=== PATIENT | male | born 1980 | race Caucasian/White ===

== ENCOUNTER 2017-12-27 18:11 | Inpatient (IN) | payer OTHER ==
[2017-12-27 19:07] VITALS: BMI 26.8
[2017-12-27] MEDS ORDERED: MELATONIN 5 MG TABLETS PO PRN (22:00)
--- NOTE | 2017-12-27 22:27 | HP ---
Admission [facility] Chief Complaint: SEEKING REHAB SERVICES FOR K2, THC, JAYCEE, AND REPORTED BENZO USE. History of Present Illness: 37 Y.O. MALE WITH HX/O POLYSUBSTANCE ABUSE HERE FOR INPATIENT REHAB. CLIENT PRESENTS INITIALLY FOR DETOX FOR BENZO USE. TOXICOLOGY NEGATIVE FOR BENZO ( TESTED X 2) CLIENT REPORTS LAST USE 2-3 DAYS AGO OF XANAX. DENIES ETOH ABUSE/ DEPENDENCE. CLIENT IS A POOR HISTORIAN. GIVING CONFLICTING INFORMATION. HE ALSO REPORTS HE IS HOMELESS. REPORTS LONGEST CLEAN TIME 7 YEARS. REPORTS LAST DETOX 5 MONTHS AGO AT [facility]. CLIENT IS PRESENTLY ON METHADONE 100 MG DAILY. LDM 100MG DAILY [place] PENDING VERIFICATION Exam Limitations: No Limitations - Ebola screening Have you traveled outside of the country in the last 21 days: No Have you had contact with anyone from an Ebola affected area: No Have you been sick,other than usual withdrawal symptoms: No Do you have a fever: No - Review of Systems Constitutional: Chills, Loss of Appetite, Malaise, Night Sweats, Unintentional Wgt. Loss EENT: reports: Recent change in vision (NEAR SIDED), Hearing Loss (PARTIALLY DEAF IN RIGHT EAR), Dental Problems (MISSING TEETH AND POOR DENTITION) Respiratory: reports: Productive cough (WHTISH) Cardiac: reports: No Symptoms Reported GI: reports: Poor Appetite, Abdominal cramping : reports: No Symptoms Reported Musculoskeletal: reports: Back Pain, Joint Pain, Neck Pain Integumentary: reports: No Symptoms Reported Neuro: reports: Seizure (R/T BENZO WITHDRAWAL/ AND HEAD TRAUMA), Other Endocrine: reports: Other (HX/O HYPOTHYROIDSM) Hematology: reports: No Symptoms Reported Psychiatric: reports: Anxious, Depressed Other Systems: Reviewed and Negative Patient History - Patient Medical History Hx Anemia: No Hx Asthma: No Hx Chronic Obstructive Pulmonary Disease (COPD): No Hx Cancer: No Hx Cardiac Disorders: No Hx Congestive Heart Failure: No Hx Hypertension: No Hx Hypercholesterolemia: No Hx Pacemaker: No HX Cerebrovascular Accident: No Hx Seizures: Yes (R/T HEAD TRAUMA AND REPORTED BENZO WITHDRAWAL NON COMPLAINT WITH DILANTIN) Hx Dementia: No Hx Diabetes: No Hx Gastrointestinal Disorders: No Hx Liver Disease: No Hx Genitourinary Disorders: No Hx Sexually Transmitted Disorders: No Hx Thyroid Disease: Yes (HYPOTHRYROIDISM ON SYNTHROID) Hx Human Immunodeficiency Virus (HIV): No Hx Hepatitis C: Yes (TX'ED) Hx Depression: Yes Hx Suicide Attempt: No Hx Bipolar Disorder: Yes Hx Schizophrenia: Yes Other Medical History: ADHD - Patient Surgical History Past Surgical History: Yes Other Surgical History: 2008 L KIDNEY STONE REMOVAL Anesthesia Reaction: No - PPD History Previous Implant?: Yes Documented Results: Negative w/o proof Implanted On Prior [facility] Admission?: No PPD to be Administered?: Yes - Smoking Cessation Smoking history: Current every day smoker Have you smoked in the past 12 months: Yes Aproximately how many cigarettes per day: 20 Cigars Per Day: 0 Hx Chewing Tobacco Use: No Initiated information on smoking cessation: Yes 'Breaking Loose' booklet given: 12/27/17 - Substance & Tx. History Hx Alcohol Use: No Hx Substance Use: Yes Substance Use Type: Cocaine, Heroin, Marijuana (K2/ THX) Hx Substance Use Treatment: Yes ([facility]) - Substances Abused THC Route: Smoking Frequency: Daily Amount used: EIGHTH Age of first use: 12 Date of Last Use: 12/27/17 K2 Route: Smoking Frequency: Daily Amount used: 1 GM Age of first use: 33 Date of Last Use: 12/27/17 HEROIN Route: Inhalation Frequency: 3-6 times per week Amount used: 1GM Age of first use: 19 Date of Last Use: 12/27/17 COCAINE Route: Smoking Frequency: 1-3 times last 30 days Amount used: 1 LINE Age of first use: 19 Date of Last Use: 12/26/17 Family Disease History - Family Disease History Family History: Denies Admission Physical Exam [facility] - Vital Signs Vital Signs: Vital Signs - 24 hr 12/27/17 19:03 Temperature 99.4 F Pulse Rate 60 Respiratory 18 Rate Blood Pressure 121/79 - Physical General Appearance: Yes: Disheveled, Irritable, Anxious HEENTM: Yes: EOMI, Normocephalic, Normal Voice, SAL, Pharynx Normal, Other ( MISSING TEETH) Respiratory: Yes: Chest Non-Tender, Lungs Clear, Normal Breath Sounds, No Respiratory Distress, No Accessory Muscle Use Neck: Yes: No masses,lesions,Nodules, Supple, Trachea in good position Breast: Yes: Breast Exam Deferred Cardiology: Yes: Regular Rhythm, Regular Rate, S1, S2 Abdominal: Yes: Normal Bowel Sounds, Non Tender, Flat, Soft Genitourinary: Yes: Within Normal Limits Back: Yes: Normal Inspection Musculoskeletal: Yes: full range of Motion, Gait Steady Extremities: Yes: Normal Capillary Refill, Normal Range of Motion, Non-Tender 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 NML intact, Fully Oriented, Motor Strength 5/5, Depressed Affect Integumentary: Yes: Dry, Warm, Track Hernandez (TO BILAT AC) Lymphatic: Yes: Within Normal Limits - Diagnostic (1) Cannabis dependence, uncomplicated Current Visit: Yes Status: Chronic (2) Methadone maintenance therapy patient Current Visit: Yes Status: Chronic (3) Cocaine abuse, uncomplicated Current Visit: Yes Status: Chronic (4) Nicotine dependence Current Visit: Yes Status: Chronic Qualifiers: Nicotine product type: cigarettes Substance use status: uncomplicated Qualified Code(s): F17.210 - Nicotine dependence, cigarettes, uncomplicated (5) Seizure disorder Current Visit: Yes Status: Chronic (6) Non compliance w medication regimen Current Visit: Yes Status: Chronic (7) Hypothyroidism Current Visit: Yes Status: Chronic (8) Hearing loss in left ear Current Visit: Yes Status: Chronic (9) Substance induced mood disorder Current Visit: Yes Status: Suspected (10) Depressed affect Current Visit: Yes Status: Suspected (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 Current Visit: Yes Status: Chronic Cleared for Admission [facility] - Detox or Rehab Detox Regimen/Protocol: Not Applicable Claeared for Rehab Admission: Yes [facility] Breath Alcohol Content Breath Alcohol Content: 0 Urine Drug Screen - Results Drug Screen Negative: No Urine Drug Screen Results: THC-Marijuana, JAYCEE-Cocaine, OPI-Opiates, MTD- Methadone Inpatient Rehab Admission - Initial Determination Are CD services needed?: Yes Free of communicable disease: Yes Not in need of hospitalization: Yes - Rehab Admission Criteria Previous failed treatment: Yes Poor recovery environment: Yes Comorbidities: Yes Lacks judgement: Yes Patient is meeting Inpatient Rehab admission criteria:: Yes
[2017-12-27] MEDS ORDERED: guaiFENesin/D-METHORPHAN HB 10 ML UNIT-DOSE CUPS PO PRN (22:56)
[2017-12-27] MEDS ORDERED: MAG HYDROX/AL HYDROX/SIMETH 30 ML UNIT-DOSE CUP PO PRN (22:56)
[2017-12-27] MEDS ORDERED: IBUPROFEN 400 MG TABLET (FP) PO PRN (22:56)
[2017-12-27] MEDS ORDERED: P-EPHED 60MG/TRIPROLIDI 2.5MG TABLET PO PRN (22:56)
[2017-12-27] MEDS ORDERED: ACETAMINOPHEN 325 MG TABLET (FP) PO PRN (22:56)
[2017-12-27] MEDS ORDERED: MAGNESIUM HYDROX 2400MG/30ML ORAL SUSPENSION 30 ML CUP PO PRN (22:56)
[2017-12-27] MEDS ORDERED: LOPERAMIDE HCL 2 MG CAPSULE PO PRN (22:56)
[2017-12-27] MEDS ORDERED: MAGNESIUM CITRATE 300 ML BOTTLE PO PRN (22:56)
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
[2017-12-28] MEDS ORDERED: LEVOTHYROXINE NA 125 MCG TABLET (FP) PO SCH (07:00)
[2017-12-28] MEDS ORDERED: LEVOTHYROXINE NA 25 MCG TABLET (FP) ONE (09:04)
[2017-12-28] MEDS ORDERED: LEVOTHYROXINE NA 100 MCG TABLET (FP) ONE (09:04)
[2017-12-28] MEDS ORDERED: METHADONE HCL 10 MG TABLET PO SCH (09:15)
[2017-12-28] MEDS ORDERED: METHADONE HCL 10 MG TABLET ONE (09:24)
[2017-12-28] MEDS ORDERED: METHADONE HCL 40 MG DISPERSABLE TABLET ONE (09:25)
[2017-12-28] MEDS: LEVOTHYROXINE 25 MCG, LEVOTHYROXINE 100 MCG PO SCH (09:27)
[2017-12-28] MEDS: PRENATAL VITAMINS W/ FOLIC ACID TABLET (FP) PO SCH (09:27)
[2017-12-28] MEDS: METHADONE 80 MG, METHADONE 20 MG PO SCH (09:28)
[2017-12-28] MEDS: NICOTINE 21 MG/24 HOURS TOPICAL PATCH TD SCH (09:30)
[2017-12-28 14:29] LABS: HEMATOCRIT 43.8 % (35.4-49); HEMOGLOBIN 14.5 GM/dL (11.7-16.9); MCH 30.5 pg (25.7-33.7); MEAN CELL VOLUME 92.3 fl (80-96); MEAN PLT VOLUME 8.9 fl (7.5-11.1); PLATELET COUNT 334 K/MM3 (134-434); RBC 4.75 M/mm3 (4.00-5.60); RDW 14.3 % (11.9-15.9)
[2017-12-28 14:44] LABS: ALBUMIN 4.1 g/dl (3.4-5.0); ANION GAP 10 (8-16); BILIRUBIN,TOTAL 0.6 mg/dL (0.2-1.0); BLOOD UREA NITROGEN 6 mg/dL (7-18); CALCIUM 9.3 mg/dL (8.5-10.1); CHLORIDE 105 mmol/L (98-107); CO2 25 mmol/L (21-32); GLUCOSE,RANDOM 141 mg/dL (74-106); POTASSIUM 4.1 mmol/L (3.5-5.1); SGOT/AST 36 U/L (15-37); SGPT/ALT 32 U/L (12-78); SODIUM 140 mmol/L (136-145); TOT PROT 7.6 g/dl (6.4-8.2)
[2017-12-28 14:45] LABS: ALK PHOS 49 U/L (45-117)
[2017-12-28] MEDS: THIAMINE HCL 100 MG TABLET (FP) PO SCH (21:34)
[2017-12-29] MEDS ORDERED: LEVOTHYROXINE NA 25 MCG TABLET (FP) ONE (04:05)
[2017-12-29] MEDS ORDERED: LEVOTHYROXINE NA 100 MCG TABLET (FP) ONE (04:05)
[2017-12-29] MEDS ORDERED: METHADONE HCL 10 MG TABLET ONE (04:05)
[2017-12-29] MEDS ORDERED: METHADONE HCL 40 MG DISPERSABLE TABLET ONE (04:05)
[2017-12-29] MEDS: LEVOTHYROXINE 25 MCG, LEVOTHYROXINE 100 MCG PO SCH (06:50)
[2017-12-29] MEDS: METHADONE 80 MG, METHADONE 20 MG PO SCH (06:50)
[2017-12-29] MEDS: PRENATAL VITAMINS W/ FOLIC ACID TABLET (FP) PO SCH (09:31)
[2017-12-29] MEDS: NICOTINE 21 MG/24 HOURS TOPICAL PATCH TD SCH (09:32)
--- NOTE | 2017-12-29 12:12 | EKG ---
Test Reason : Blood Pressure : / mmHG Vent. Rate : 053 BPM Atrial Rate : 053 BPM P-R Int : 140 ms QRS Dur : 088 ms QT Int : 488 ms P-R-T Axes : 054 021 039 degrees QTc Int : 457 ms SINUS BRADYCARDIA WITH SINUS ARRHYTHMIA OTHERWISE NORMAL ECG NO PREVIOUS ECGS AVAILABLE Confirmed by THIERRY SOLOMON, YOANA ([id number]) on 12/29/2017 12:11:56 PM Referred By: Cricket Byers Confirmed By:YOANA GUADARRAMA MD
[2017-12-29] MEDS: THIAMINE HCL 100 MG TABLET (FP) PO SCH (21:20)
[2017-12-30] MEDS ORDERED: METHADONE HCL 40 MG DISPERSABLE TABLET ONE (04:11)
[2017-12-30] MEDS ORDERED: LEVOTHYROXINE NA 25 MCG TABLET (FP) ONE (04:11)
[2017-12-30] MEDS ORDERED: METHADONE HCL 10 MG TABLET ONE (04:11)
[2017-12-30] MEDS ORDERED: LEVOTHYROXINE NA 100 MCG TABLET (FP) ONE (04:12)
[2017-12-30] MEDS: METHADONE 80 MG, METHADONE 20 MG PO SCH (06:45)
[2017-12-30] MEDS: LEVOTHYROXINE 25 MCG, LEVOTHYROXINE 100 MCG PO SCH (06:45)
[2017-12-30] MEDS: PRENATAL VITAMINS W/ FOLIC ACID TABLET (FP) PO SCH (09:50)
[2017-12-30] MEDS: NICOTINE 21 MG/24 HOURS TOPICAL PATCH TD SCH (09:50)
--- NOTE | 2017-12-30 14:13 | PN ---
S Progress Note Note: PATIENT PRESENTS WITH REDNESS AND ITCHING TO BOTH EYES. STATES HAVING YELLOW, GREEN DISCHARGE IN THE MORNING FROM LEFT EYE. PE: +PERRLA, EOMS INTACT BL, + REDNESS TO SCLERA AND CONJUNCTIVAE. NO VISIBLE EXUDATE AT TIME OF EXAM. WILL ORDER TOBRADEX TO BOTH EYES ONE DROP TID FOR 7 DAYS, STRICT HANDWASHING AND CONTINUE TO MONITOR CLINICALLY.
[2017-12-30 14:55] LABS: URINE APPEARANCE CLOUDY; URINE BILIRUBIN NEGATIVE (<2.0 mg/dL); URINE COLOR AMBER; URINE GLUCOSE (UA) NEGATIVE (NEGATIVE); URINE KETONE NEGATIVE (NEGATIVE); URINE LEUK ESTERASE 3+ (NEGATIVE); URINE NITRITE NEGATIVE (NEGATIVE); URINE PROTEIN 2+ (NEGATIVE); URINE UROBILINOGEN NEGATIVE mg/dL (0.2-1.0)
--- NOTE | 2017-12-30 14:58 | PN ---
Psychiatric Progress Note Vital Signs: Vital Signs Period Temp Pulse Resp BP Sys/Matos Pulse Ox Last 24 Hr 97.9 F 58 18 108/70 Date of Session: 12/30/17 Chief Complaint:: Insomnia HPI: Patient addressing Cocaine, Cannabis Dependence comorbid with Opioid Dependence on Agonist Therapy, ADHD, Bipolar Disorder, PTSD, Substance-Induced Mood Disorder and Substance-Induced Sleep Disorder ROS: Hypothyroisdism, Seizure Disorder, Hep C Current Medications: Active Medications Generic Name Dose Route Start Last Admin Trade Name Freq PRN Reason Stop Dose Admin Acetaminophen 650 mg 12/27/17 22:56 Tylenol - PO Q4H PRN FEVER Al Hydroxide/Mg Hydroxide 30 ml 12/27/17 22:56 Mylanta Oral Suspension - PO Q6H PRN DYSPEPSIA Eucalyptus/Menthol/Phenol/Sorbitol 1 each 12/27/17 22:56 Cepastat Lozenge - MM Q4H PRN SORE THROAT Guaifenesin 10 ml 12/27/17 22:56 Robitussin Dm - PO Q6H PRN COUGH Hydroxyzine Pamoate 50 mg 12/27/17 22:56 Vistaril - PO Q4H PRN AGITATION Ibuprofen 400 mg 12/27/17 22:56 Motrin - PO Q6H PRN Pain level 4-6 Levothyroxine Sodium 25 mcg/ 125 mcg 12/28/17 09:00 12/30/17 06:45 Levothyroxine Sodium 100 mcg PO 125 mcg DAILY@0700 SHERI Administration Loperamide HCl 4 mg 12/27/17 22:56 Imodium - PO Q6H PRN DIARRHEA Magnesium Citrate 300 ml 12/27/17 22:56 Citroma - PO Q48H PRN CONSTIPATION Magnesium Hydroxide 30 ml 12/27/17 22:56 Milk Of Magnesia - PO DAILY PRN CONSTIPATION Melatonin 5 mg 12/27/17 22:00 Melatonin PO HS PRN INSOMNIA Methadone HCl 80 mg/ Methadone 100 mg 12/28/17 09:20 12/30/17 06:45 HCl 20 mg PO 01/04/18 09:19 100 mg DAILY@0600 SHERI Administration Nicotine 21 mg 12/28/17 10:00 12/30/17 09:50 Nicoderm Patch - TD 21 mg DAILY SHERI Administration Nicotine Polacrilex 2 mg 12/27/17 22:56 Nicorette Gum - BUC Q2H PRN NICOTINE REPLACEMENT RX Multivit/Folic Acid/Iron 1 tab 12/28/17 10:00 12/30/17 09:50 Vitamins ([facility]) - PO 1 tab DAILY SHERI Administration Pseudoephedrine/Triprolidine 1 combo 12/27/17 22:56 Actifed - PO TID PRN NASAL CONGESTION Suvorexant 10 mg 12/30/17 22:00 Belsomra PO HS PRN INSOMNIA Thiamine HCl 100 mg 12/28/17 22:00 12/29/17 21:20 Vitamin B1 - PO 100 mg HS SHERI Administration Tobramycin/Dexamethasone 1 drop 12/30/17 18:00 Tobradex Ophthalmic Suspension - OU 01/06/18 17:59 Q6HPO SHERI Current Side Effect: No Lab tests ordered: Yes Lab tests reviewed: Yes Provider note:: Patient reports experiencing difficulty to sleep despite taking Melatonin 5 mg at bedtime. Requests something stronger other than Trazadone. Discussed with patient sleep properties and adverse-effects of Belsomra and he agreeed to try it Total face to face time:: 15 Mental Status Exam - Mental Status Exam Alert and Oriented to: Time, Place, Person Cognitive Function: Fair Patient Appearance: Well Groomed Mood: Anxious, Hopeful Affect: Appropriate Patient Behavior: Cooperative Speech Pattern: Clear Voice Loudness: Normal Thought Process: Intact, Goal Oriented Thought Disorder: Not Present Hallucinations: Denies Suicidal Ideation: Denies Homicidal Ideation: Denies Insight/Judgement: Fair Sleep: Poorly Appetite: Good Muscle strength/Tone: Normal Gait/Station: Normal Psychiatric Treatment Plan - Problem List (1) Cocaine dependence Current Visit: Yes (2) Cannabis dependence Current Visit: Yes (3) Opioid dependence on agonist therapy Current Visit: Yes (4) Nicotine dependence Current Visit: Yes Qualifiers: Nicotine product type: cigarettes Substance use status: uncomplicated Qualified Code(s): F17.210 - Nicotine dependence, cigarettes, uncomplicated (5) ADHD (attention deficit hyperactivity disorder) Current Visit: Yes (6) Bipolar disorder Current Visit: Yes (7) PTSD (post-traumatic stress disorder) Current Visit: Yes (8) Substance induced mood disorder Current Visit: Yes (9) Substance-induced sleep disorder Current Visit: Yes (10) Hypothyroidism Current Visit: Yes (11) Seizure disorder Current Visit: Yes (12) Hepatitis C Current Visit: Yes Initial treatment plan: 1) Start Belsomra 10 mg po HS prn for insomnia. 2) Monitor progress
[2017-12-30 15:24] LABS: CALCIUM OXALATE CRYSTALS MANY /hpf (NONE SEEN); URINE MUCUS FEW; YEAST MODERATE
[2017-12-30] MEDS: TOBRA 0.3%/DEXAMETH 0.1% OPHTHALMIC SUSP 2.5 ML BTL OU SCH (18:24)
[2017-12-30] MEDS: hydrOXYzine PAMOATE 50 MG CAPSULE (FP) PO PRN (18:25)
[2017-12-30] MEDS: THIAMINE HCL 100 MG TABLET (FP) PO SCH (21:37)
[2017-12-30] MEDS ORDERED: SUVOREXANT 10 MG TABLET PO PRN (22:00)
[2017-12-31] MEDS: TOBRA 0.3%/DEXAMETH 0.1% OPHTHALMIC SUSP 2.5 ML BTL OU SCH ×4 (00:30→17:54)
[2017-12-31] MEDS ORDERED: METHADONE HCL 40 MG DISPERSABLE TABLET ONE (03:15)
[2017-12-31] MEDS ORDERED: METHADONE HCL 10 MG TABLET ONE (03:15)
[2017-12-31] MEDS ORDERED: LEVOTHYROXINE NA 25 MCG TABLET (FP) ONE (03:15)
[2017-12-31] MEDS ORDERED: LEVOTHYROXINE NA 100 MCG TABLET (FP) ONE (03:16)
[2017-12-31] MEDS: LEVOTHYROXINE 25 MCG, LEVOTHYROXINE 100 MCG PO SCH (07:11)
[2017-12-31] MEDS: METHADONE 80 MG, METHADONE 20 MG PO SCH (07:11)
[2017-12-31] MEDS: hydrOXYzine PAMOATE 50 MG CAPSULE (FP) PO PRN ×2 (09:56→17:54)
[2017-12-31] MEDS: PRENATAL VITAMINS W/ FOLIC ACID TABLET (FP) PO SCH (09:56)
[2017-12-31] MEDS: NICOTINE 21 MG/24 HOURS TOPICAL PATCH TD SCH (09:56)
[2017-12-31] MEDS: MENTHOL/PHENOL 1 EACH UD MM PRN ×2 (10:01→17:54)
[2017-12-31] MEDS ORDERED: PT OWN MED DRAWER 7, Y5N ONE ×2 (17:53→17:57)
[2017-12-31] MEDS: THIAMINE HCL 100 MG TABLET (FP) PO SCH (22:14)
[2018-01-01] MEDS ORDERED: PT OWN MED DRAWER 7, Y5N ONE ×3 (00:01→18:04)
[2018-01-01] MEDS ORDERED: METHADONE HCL 10 MG TABLET ONE (02:44)
[2018-01-01] MEDS ORDERED: LEVOTHYROXINE NA 25 MCG TABLET (FP) ONE (02:44)
[2018-01-01] MEDS ORDERED: METHADONE HCL 40 MG DISPERSABLE TABLET ONE (02:44)
[2018-01-01] MEDS ORDERED: LEVOTHYROXINE NA 100 MCG TABLET (FP) ONE (02:45)
[2018-01-01] MEDS: METHADONE 80 MG, METHADONE 20 MG PO SCH (06:25)
[2018-01-01] MEDS: TOBRA 0.3%/DEXAMETH 0.1% OPHTHALMIC SUSP 2.5 ML BTL OU SCH ×5 (06:26→23:42)
[2018-01-01] MEDS: LEVOTHYROXINE 25 MCG, LEVOTHYROXINE 100 MCG PO SCH (06:26)
[2018-01-01] MEDS: NICOTINE 21 MG/24 HOURS TOPICAL PATCH TD SCH (09:09)
[2018-01-01] MEDS: hydrOXYzine PAMOATE 50 MG CAPSULE (FP) PO PRN ×4 (09:09→21:33)
[2018-01-01] MEDS: PRENATAL VITAMINS W/ FOLIC ACID TABLET (FP) PO SCH (09:09)
[2018-01-01] MEDS: MENTHOL/PHENOL 1 EACH UD MM PRN (09:10)
[2018-01-01] MEDS: NICOTINE POLACRILEX 2 MG GUM BUC PRN ×2 (13:16→21:33)
[2018-01-01] MEDS: THIAMINE HCL 100 MG TABLET (FP) PO SCH (21:32)
[2018-01-02] MEDS ORDERED: METHADONE HCL 10 MG TABLET ONE (04:06)
[2018-01-02] MEDS ORDERED: METHADONE HCL 40 MG DISPERSABLE TABLET ONE (04:06)
[2018-01-02] MEDS: METHADONE 80 MG, METHADONE 20 MG PO SCH (06:54)
[2018-01-02] MEDS: TOBRA 0.3%/DEXAMETH 0.1% OPHTHALMIC SUSP 2.5 ML BTL OU SCH ×3 (06:55→17:58)
[2018-01-02] MEDS: LEVOTHYROXINE 25 MCG, LEVOTHYROXINE 100 MCG PO SCH (06:55)
[2018-01-02] MEDS ORDERED: PT OWN MED DRAWER 7, Y5N ONE (09:04)
[2018-01-02] MEDS: PRENATAL VITAMINS W/ FOLIC ACID TABLET (FP) PO SCH (09:58)
[2018-01-02] MEDS: NICOTINE 21 MG/24 HOURS TOPICAL PATCH TD SCH (09:58)
[2018-01-02] MEDS: hydrOXYzine PAMOATE 50 MG CAPSULE (FP) PO PRN ×2 (10:00→21:31)
[2018-01-02] MEDS: NICOTINE POLACRILEX 2 MG GUM BUC PRN ×4 (10:02→21:32)
[2018-01-02] MEDS: MENTHOL/PHENOL 1 EACH UD MM PRN (10:02)
[2018-01-02] MEDS: THIAMINE HCL 100 MG TABLET (FP) PO SCH (21:31)
[2018-01-03] MEDS: TOBRA 0.3%/DEXAMETH 0.1% OPHTHALMIC SUSP 2.5 ML BTL OU SCH ×4 (00:05→17:27)
[2018-01-03] MEDS ORDERED: METHADONE HCL 10 MG TABLET ONE (04:10)
[2018-01-03] MEDS ORDERED: LEVOTHYROXINE NA 25 MCG TABLET (FP) ONE (04:10)
[2018-01-03] MEDS ORDERED: METHADONE HCL 40 MG DISPERSABLE TABLET ONE (04:10)
[2018-01-03] MEDS ORDERED: LEVOTHYROXINE NA 100 MCG TABLET (FP) ONE (04:11)
[2018-01-03] MEDS: METHADONE 80 MG, METHADONE 20 MG PO SCH (06:47)
[2018-01-03] MEDS: LEVOTHYROXINE 25 MCG, LEVOTHYROXINE 100 MCG PO SCH (06:48)
[2018-01-03] MEDS: NICOTINE 21 MG/24 HOURS TOPICAL PATCH TD SCH (09:38)
[2018-01-03] MEDS: PRENATAL VITAMINS W/ FOLIC ACID TABLET (FP) PO SCH (09:38)
[2018-01-03] MEDS: hydrOXYzine PAMOATE 50 MG CAPSULE (FP) PO PRN ×2 (09:38→21:37)
[2018-01-03] MEDS: NICOTINE POLACRILEX 2 MG GUM BUC PRN ×4 (09:41→20:50)
[2018-01-03] MEDS: MENTHOL/PHENOL 1 EACH UD MM PRN (09:41)
--- NOTE | 2018-01-03 13:47 | PN ---
[facility] Progress Note Note: c/o of back pain Vital Signs Temperature 98.1 F 01/03/18 07:00 Pulse Rate 65 01/03/18 07:00 Respiratory Rate 18 01/03/18 07:00 Blood Pressure 132/75 01/03/18 07:00 O2 Sat by Pulse Oximetry (%) Laboratory Last Values WBC 9.0 K/mm3 (4.0-10.0) 12/28/17 09:00 RBC 4.75 M/mm3 (4.00-5.60) 12/28/17 09:00 Hgb 14.5 GM/dL (11.7-16.9) 12/28/17 09:00 Hct 43.8 % (35.4-49) 12/28/17 09:00 MCV 92.3 fl (80-96) 12/28/17 09:00 MCH 30.5 pg (25.7-33.7) 12/28/17 09:00 MCHC 33.0 g/dl (32.0-35.9) 12/28/17 09:00 RDW 14.3 % (11.9-15.9) 12/28/17 09:00 Plt Count 334 K/MM3 (134-434) 12/28/17 09:00 MPV 8.9 fl (7.5-11.1) 12/28/17 09:00 Sodium 140 mmol/L (136-145) 12/28/17 09:00 Potassium 4.1 mmol/L (3.5-5.1) 12/28/17 09:00 Chloride 105 mmol/L (98-107) 12/28/17 09:00 Carbon Dioxide 25 mmol/L (21-32) 12/28/17 09:00 Anion Gap 10 (8-16) 12/28/17 09:00 BUN 6 mg/dL (7-18) L 12/28/17 09:00 Creatinine 1.0 mg/dL (0.7-1.3) 12/28/17 09:00 Creat Clearance w eGFR > 60 (>60) 12/28/17 09:00 Random Glucose 141 mg/dL (74-106) H 12/28/17 09:00 Calcium 9.3 mg/dL (8.5-10.1) 12/28/17 09:00 Total Bilirubin 0.6 mg/dL (0.2-1.0) 12/28/17 09:00 AST 36 U/L (15-37) 12/28/17 09:00 ALT 32 U/L (12-78) 12/28/17 09:00 Alkaline Phosphatase 49 U/L (45-117) 12/28/17 09:00 Total Protein 7.6 g/dl (6.4-8.2) 12/28/17 09:00 Albumin 4.1 g/dl (3.4-5.0) 12/28/17 09:00 Urine Color Marcelle 12/30/17 10:15 Urine Appearance Cloudy 12/30/17 10:15 Urine pH 5.0 (5.0-8.0) 12/30/17 10:15 Ur Specific [place] 1.021 (1.001-1.035) 12/30/17 10:15 Urine Protein 2+ (NEGATIVE) H 12/30/17 10:15 Urine Glucose (UA) Negative (NEGATIVE) 12/30/17 10:15 Urine Ketones Negative (NEGATIVE) 12/30/17 10:15 Urine Blood Negative (NEGATIVE) 12/30/17 10:15 Urine Nitrite Negative (NEGATIVE) 12/30/17 10:15 Urine Bilirubin Negative (<2.0 mg/dL) 12/30/17 10:15 Urine Urobilinogen Negative mg/dL (0.2-1.0) 12/30/17 10:15 Ur Leukocyte Esterase 3+ (NEGATIVE) H 12/30/17 10:15 Urine WBC (Auto) 994 /hpf (3-5) 12/30/17 10:15 Urine RBC (Auto) 34 /hpf (0-3) 12/30/17 10:15 Calcium Oxalate Crystal Many /hpf (NONE SEEN) 12/30/17 10:15 Urine Mucus Few 12/30/17 10:15 Urine Yeast Moderate 12/30/17 10:15 RPR Titer Nonreactive (NONREACTIVE) 12/28/17 09:00 flexeril PRN increase fluids ibuprofen PRN ambulate continue to monitor
[2018-01-03] MEDS: CYCLOBENZAPRINE HCL 5 MG TABLET PO SCH ×2 (14:21→21:37)
[2018-01-03] MEDS: LIDOCAINE 5% TOPICAL PATCH TP SCH (14:21)
[2018-01-03] MEDS ORDERED: PT OWN MED DRAWER 7, Y5N ONE (16:44)
[2018-01-03] MEDS: THIAMINE HCL 100 MG TABLET (FP) PO SCH (21:37)
[2018-01-03] MEDS: LIDOCAINE PATCH REMOVAL MC SCH (21:45)
[2018-01-04] MEDS: TOBRA 0.3%/DEXAMETH 0.1% OPHTHALMIC SUSP 2.5 ML BTL OU SCH ×5 (01:07→23:39)
[2018-01-04] MEDS ORDERED: LEVOTHYROXINE NA 100 MCG TABLET (FP) ONE (02:42)
[2018-01-04] MEDS ORDERED: LEVOTHYROXINE NA 25 MCG TABLET (FP) ONE (02:42)
[2018-01-04] MEDS ORDERED: METHADONE HCL 10 MG TABLET ONE (05:49)
[2018-01-04] MEDS ORDERED: METHADONE HCL 40 MG DISPERSABLE TABLET ONE (05:49)
[2018-01-04] MEDS ORDERED: METHADONE HCL 10 MG TABLET PO SCH (06:00)
[2018-01-04] MEDS: LEVOTHYROXINE 25 MCG, LEVOTHYROXINE 100 MCG PO SCH (06:49)
[2018-01-04] MEDS: CYCLOBENZAPRINE HCL 5 MG TABLET PO SCH ×3 (06:49→21:21)
[2018-01-04] MEDS: METHADONE 80 MG, METHADONE 20 MG PO SCH (06:49)
[2018-01-04] MEDS: LIDOCAINE 5% TOPICAL PATCH TP SCH (09:36)
[2018-01-04] MEDS: NICOTINE 21 MG/24 HOURS TOPICAL PATCH TD SCH (09:36)
[2018-01-04] MEDS: PRENATAL VITAMINS W/ FOLIC ACID TABLET (FP) PO SCH (09:36)
[2018-01-04] MEDS: NICOTINE POLACRILEX 2 MG GUM BUC PRN ×4 (09:37→21:22)
[2018-01-04] MEDS: hydrOXYzine PAMOATE 50 MG CAPSULE (FP) PO PRN ×2 (09:38→21:21)
[2018-01-04] MEDS: THIAMINE HCL 100 MG TABLET (FP) PO SCH (21:21)
[2018-01-04] MEDS: LIDOCAINE PATCH REMOVAL MC SCH (22:00)
[2018-01-05] MEDS ORDERED: METHADONE HCL 10 MG TABLET ONE (04:20)
[2018-01-05] MEDS ORDERED: LEVOTHYROXINE NA 25 MCG TABLET (FP) ONE (04:21)
[2018-01-05] MEDS ORDERED: METHADONE HCL 40 MG DISPERSABLE TABLET ONE (04:21)
[2018-01-05] MEDS ORDERED: LEVOTHYROXINE NA 100 MCG TABLET (FP) ONE (04:22)
[2018-01-05] MEDS: METHADONE 80 MG, METHADONE 20 MG PO SCH (06:22)
[2018-01-05] MEDS: CYCLOBENZAPRINE HCL 5 MG TABLET PO SCH ×3 (06:22→21:29)
[2018-01-05] MEDS: LEVOTHYROXINE 25 MCG, LEVOTHYROXINE 100 MCG PO SCH (06:22)
[2018-01-05] MEDS: TOBRA 0.3%/DEXAMETH 0.1% OPHTHALMIC SUSP 2.5 ML BTL OU SCH ×3 (06:25→17:55)
[2018-01-05] MEDS: LIDOCAINE 5% TOPICAL PATCH TP SCH (09:50)
[2018-01-05] MEDS: NICOTINE 21 MG/24 HOURS TOPICAL PATCH TD SCH (09:50)
[2018-01-05] MEDS: PRENATAL VITAMINS W/ FOLIC ACID TABLET (FP) PO SCH (09:50)
[2018-01-05] MEDS: NICOTINE POLACRILEX 2 MG GUM BUC PRN ×3 (09:51→17:56)
[2018-01-05] MEDS: hydrOXYzine PAMOATE 50 MG CAPSULE (FP) PO PRN ×3 (09:51→21:29)
[2018-01-05] MEDS: LIDOCAINE PATCH REMOVAL MC SCH (21:29)
[2018-01-05] MEDS: THIAMINE HCL 100 MG TABLET (FP) PO SCH (21:29)
[2018-01-06] MEDS ORDERED: METHADONE HCL 10 MG TABLET ONE (04:47)
[2018-01-06] MEDS ORDERED: LEVOTHYROXINE NA 25 MCG TABLET (FP) ONE (04:47)
[2018-01-06] MEDS ORDERED: METHADONE HCL 40 MG DISPERSABLE TABLET ONE (04:47)
[2018-01-06] MEDS ORDERED: LEVOTHYROXINE NA 100 MCG TABLET (FP) ONE (04:48)
[2018-01-06] MEDS: LEVOTHYROXINE 25 MCG, LEVOTHYROXINE 100 MCG PO SCH (06:29)
[2018-01-06] MEDS: CYCLOBENZAPRINE HCL 5 MG TABLET PO SCH ×3 (06:29→21:28)
[2018-01-06] MEDS: METHADONE 80 MG, METHADONE 20 MG PO SCH (06:29)
[2018-01-06] MEDS: TOBRA 0.3%/DEXAMETH 0.1% OPHTHALMIC SUSP 2.5 ML BTL OU SCH ×3 (06:30→12:17)
[2018-01-06] MEDS: NICOTINE POLACRILEX 2 MG GUM BUC PRN ×5 (09:04→22:06)
[2018-01-06] MEDS: PRENATAL VITAMINS W/ FOLIC ACID TABLET (FP) PO SCH (09:47)
[2018-01-06] MEDS: NICOTINE 21 MG/24 HOURS TOPICAL PATCH TD SCH (09:47)
[2018-01-06] MEDS: LIDOCAINE 5% TOPICAL PATCH TP SCH (09:47)
[2018-01-06] MEDS: hydrOXYzine PAMOATE 50 MG CAPSULE (FP) PO PRN (09:48)
[2018-01-06] MEDS: THIAMINE HCL 100 MG TABLET (FP) PO SCH (21:28)
[2018-01-06] MEDS: LIDOCAINE PATCH REMOVAL MC SCH (22:19)
[2018-01-07] MEDS ORDERED: LEVOTHYROXINE NA 25 MCG TABLET (FP) ONE (05:47)
[2018-01-07] MEDS ORDERED: METHADONE HCL 40 MG DISPERSABLE TABLET ONE (05:47)
[2018-01-07] MEDS ORDERED: METHADONE HCL 10 MG TABLET ONE (05:47)
[2018-01-07] MEDS ORDERED: LEVOTHYROXINE NA 100 MCG TABLET (FP) ONE (05:48)
[2018-01-07] MEDS: LEVOTHYROXINE 25 MCG, LEVOTHYROXINE 100 MCG PO SCH (06:36)
[2018-01-07] MEDS: CYCLOBENZAPRINE HCL 5 MG TABLET PO SCH ×3 (06:36→21:37)
[2018-01-07] MEDS: METHADONE 80 MG, METHADONE 20 MG PO SCH (06:36)
[2018-01-07] MEDS: NICOTINE POLACRILEX 2 MG GUM BUC PRN ×4 (08:53→21:38)
[2018-01-07] MEDS: PRENATAL VITAMINS W/ FOLIC ACID TABLET (FP) PO SCH (09:48)
[2018-01-07] MEDS: LIDOCAINE 5% TOPICAL PATCH TP SCH (09:48)
[2018-01-07] MEDS: NICOTINE 21 MG/24 HOURS TOPICAL PATCH TD SCH (09:48)
[2018-01-07] MEDS: LIDOCAINE PATCH REMOVAL MC SCH (21:38)
[2018-01-07] MEDS: THIAMINE HCL 100 MG TABLET (FP) PO SCH (21:39)
[2018-01-08] MEDS ORDERED: LEVOTHYROXINE NA 25 MCG TABLET (FP) ONE (04:00)
[2018-01-08] MEDS ORDERED: METHADONE HCL 40 MG DISPERSABLE TABLET ONE (04:00)
[2018-01-08] MEDS ORDERED: METHADONE HCL 10 MG TABLET ONE (04:00)
[2018-01-08] MEDS ORDERED: LEVOTHYROXINE NA 100 MCG TABLET (FP) ONE (04:01)
[2018-01-08] MEDS: LEVOTHYROXINE 25 MCG, LEVOTHYROXINE 100 MCG PO SCH (06:30)
[2018-01-08] MEDS: METHADONE 80 MG, METHADONE 20 MG PO SCH (06:30)
[2018-01-08] MEDS: CYCLOBENZAPRINE HCL 5 MG TABLET PO SCH ×3 (06:30→21:51)
[2018-01-08] MEDS: NICOTINE POLACRILEX 2 MG GUM BUC PRN ×5 (06:33→21:51)
[2018-01-08] MEDS: NICOTINE 21 MG/24 HOURS TOPICAL PATCH TD SCH (10:43)
[2018-01-08] MEDS: PRENATAL VITAMINS W/ FOLIC ACID TABLET (FP) PO SCH (10:43)
[2018-01-08] MEDS: LIDOCAINE 5% TOPICAL PATCH TP SCH (10:43)
[2018-01-08] MEDS: hydrOXYzine PAMOATE 50 MG CAPSULE (FP) PO PRN (21:51)
[2018-01-08] MEDS: LIDOCAINE PATCH REMOVAL MC SCH (21:51)
[2018-01-08] MEDS: THIAMINE HCL 100 MG TABLET (FP) PO SCH (21:51)
[2018-01-09] MEDS ORDERED: METHADONE HCL 10 MG TABLET ONE (03:11)
[2018-01-09] MEDS ORDERED: METHADONE HCL 40 MG DISPERSABLE TABLET ONE (03:11)
[2018-01-09] MEDS ORDERED: LEVOTHYROXINE NA 25 MCG TABLET (FP) ONE (03:11)
[2018-01-09] MEDS ORDERED: LEVOTHYROXINE NA 100 MCG TABLET (FP) ONE (03:12)
[2018-01-09] MEDS: METHADONE 80 MG, METHADONE 20 MG PO SCH (06:23)
[2018-01-09] MEDS: CYCLOBENZAPRINE HCL 5 MG TABLET PO SCH ×3 (06:24→21:44)
[2018-01-09] MEDS: LEVOTHYROXINE 25 MCG, LEVOTHYROXINE 100 MCG PO SCH (06:24)
[2018-01-09] MEDS: NICOTINE POLACRILEX 2 MG GUM BUC PRN ×4 (08:26→20:35)
[2018-01-09] MEDS: NICOTINE 21 MG/24 HOURS TOPICAL PATCH TD SCH (09:51)
[2018-01-09] MEDS: PRENATAL VITAMINS W/ FOLIC ACID TABLET (FP) PO SCH (09:51)
[2018-01-09] MEDS: LIDOCAINE 5% TOPICAL PATCH TP SCH (09:51)
--- NOTE | 2018-01-09 15:29 | PN ---
[facility] Progress Note Note: PATIENT PRESENTS WITH WITH ITCHING AND REDNESS TO BOTH EYES AND DRY SKIN. STATES ITCHING AND REDNESS OCCURS WITH HIGH ENVIRONMENTAL DUST. Vital Signs Temperature 98.2 F 01/09/18 06:58 Pulse Rate 73 01/09/18 06:58 Respiratory Rate 18 01/09/18 06:58 Blood Pressure 108/70 01/09/18 06:58 O2 Sat by Pulse Oximetry (%) Laboratory Tests 12/28/17 12/28/17 12/28/17 09:00 09:00 09:00 WBC 9.0 RBC 4.75 Hgb 14.5 Hct 43.8 MCV 92.3 MCH 30.5 MCHC 33.0 RDW 14.3 Plt Count 334 MPV 8.9 Sodium 140 Potassium 4.1 Chloride 105 Carbon Dioxide 25 Anion Gap 10 BUN 6 L Creatinine 1.0 Creat Clearance w eGFR > 60 Random Glucose 141 H Calcium 9.3 Total Bilirubin 0.6 AST 36 ALT 32 Alkaline Phosphatase 49 Total Protein 7.6 Albumin 4.1 Urine Color Urine Appearance Urine pH Ur Specific [place] Urine Protein Urine Glucose (UA) Urine Ketones Urine Blood Urine Nitrite Urine Bilirubin Urine Urobilinogen Ur Leukocyte Esterase Urine WBC (Auto) Urine RBC (Auto) Calcium Oxalate Crystal Urine Mucus Urine Yeast RPR Titer Nonreactive 12/30/17 10:15 WBC RBC Hgb Hct MCV MCH MCHC RDW Plt Count MPV Sodium Potassium Chloride Carbon Dioxide Anion Gap BUN Creatinine Creat Clearance w eGFR Random Glucose Calcium Total Bilirubin AST ALT Alkaline Phosphatase Total Protein Albumin Urine Color Marcelle Urine Appearance Cloudy Urine pH 5.0 Ur Specific [place] 1.021 Urine Protein 2+ H Urine Glucose (UA) Negative Urine Ketones Negative Urine Blood Negative Urine Nitrite Negative Urine Bilirubin Negative Urine Urobilinogen Negative Ur Leukocyte Esterase 3+ H Urine WBC (Auto) 994 Urine RBC (Auto) 34 Calcium Oxalate Crystal Many Urine Mucus Few Urine Yeast Moderate RPR Titer OBJ: EYES WITH REDNESS OF CONJUNCTIVAE OU, NO EXUDATE OR SWELLING OF EYELIDS NOTED. SKIN: WARM AND DRY, NO VISIBLE LESIONS OR RASHES PRESENT A/P; ALLERGIC CONJUNCTIVITIS DRY SKIN WILL ORDER CROMOLYN EYE DROPS AVEENO SOAP AND EUCERIN CREAM CONTINUE TO MONITOR CLINICALLY.
[2018-01-09] MEDS: CROMOLYN SODIUM 4% OPHTH DROPS 10 ML BOTTLE OU SCH ×2 (17:44→21:45)
[2018-01-09] MEDS: COLLOIDAL OATMEAL 1 BAR EACH TP PRN (20:35)
[2018-01-09] MEDS: THIAMINE HCL 100 MG TABLET (FP) PO SCH (21:44)
[2018-01-09] MEDS: hydrOXYzine PAMOATE 50 MG CAPSULE (FP) PO PRN (21:44)
[2018-01-09] MEDS: MINERAL OIL/PETROLAT/WATER TOPICAL CREAM 113 GM JAR TP SCH (21:45)
[2018-01-09] MEDS: LIDOCAINE PATCH REMOVAL MC SCH (21:45)
[2018-01-10] MEDS ORDERED: LEVOTHYROXINE NA 100 MCG TABLET (FP) ONE (02:43)
[2018-01-10] MEDS ORDERED: LEVOTHYROXINE NA 25 MCG TABLET (FP) ONE (02:43)
[2018-01-10] MEDS: CROMOLYN SODIUM 4% OPHTH DROPS 10 ML BOTTLE OU SCH ×4 (04:03→21:51)
[2018-01-10] MEDS ORDERED: METHADONE HCL 40 MG DISPERSABLE TABLET ONE (06:01)
[2018-01-10] MEDS ORDERED: METHADONE HCL 10 MG TABLET ONE (06:01)
[2018-01-10] MEDS: METHADONE 80 MG, METHADONE 20 MG PO SCH (06:41)
[2018-01-10] MEDS: LEVOTHYROXINE 25 MCG, LEVOTHYROXINE 100 MCG PO SCH (06:41)
[2018-01-10] MEDS: CYCLOBENZAPRINE HCL 5 MG TABLET PO SCH ×3 (06:41→21:48)
[2018-01-10] MEDS ORDERED: PT OWN MED DRAWER 7, Y5N ONE ×2 (08:46→21:50)
[2018-01-10] MEDS: NICOTINE POLACRILEX 2 MG GUM BUC PRN ×5 (08:59→21:51)
[2018-01-10] MEDS: MINERAL OIL/PETROLAT/WATER TOPICAL CREAM 113 GM JAR TP SCH ×2 (08:59→21:51)
[2018-01-10] MEDS: PRENATAL VITAMINS W/ FOLIC ACID TABLET (FP) PO SCH (09:24)
[2018-01-10] MEDS: LIDOCAINE 5% TOPICAL PATCH TP SCH (09:26)
[2018-01-10] MEDS: NICOTINE 21 MG/24 HOURS TOPICAL PATCH TD SCH (09:26)
[2018-01-10] MEDS: LIDOCAINE PATCH REMOVAL MC SCH (21:48)
[2018-01-10] MEDS: THIAMINE HCL 100 MG TABLET (FP) PO SCH (21:48)
[2018-01-10] MEDS: TOLNAFTATE 1% CREAM 15 GM TUBE TP SCH (21:59)
[2018-01-11] MEDS ORDERED: METHADONE HCL 40 MG DISPERSABLE TABLET ONE (03:08)
[2018-01-11] MEDS ORDERED: LEVOTHYROXINE NA 25 MCG TABLET (FP) ONE (03:08)
[2018-01-11] MEDS ORDERED: METHADONE HCL 10 MG TABLET ONE (03:08)
[2018-01-11] MEDS ORDERED: LEVOTHYROXINE NA 100 MCG TABLET (FP) ONE (03:09)
[2018-01-11] MEDS: CROMOLYN SODIUM 4% OPHTH DROPS 10 ML BOTTLE OU SCH ×4 (03:32→21:44)
[2018-01-11] MEDS: METHADONE 80 MG, METHADONE 20 MG PO SCH (06:34)
[2018-01-11] MEDS: LEVOTHYROXINE 25 MCG, LEVOTHYROXINE 100 MCG PO SCH (06:34)
[2018-01-11] MEDS: CYCLOBENZAPRINE HCL 5 MG TABLET PO SCH ×3 (06:34→21:44)
[2018-01-11] MEDS ORDERED: PT OWN MED DRAWER 7, Y5N ONE (08:28)
[2018-01-11] MEDS: NICOTINE POLACRILEX 2 MG GUM BUC PRN ×4 (08:29→21:46)
[2018-01-11] MEDS: LIDOCAINE 5% TOPICAL PATCH TP SCH (09:36)
[2018-01-11] MEDS: PRENATAL VITAMINS W/ FOLIC ACID TABLET (FP) PO SCH (09:36)
[2018-01-11] MEDS: NICOTINE 21 MG/24 HOURS TOPICAL PATCH TD SCH (09:36)
[2018-01-11] MEDS: MINERAL OIL/PETROLAT/WATER TOPICAL CREAM 113 GM JAR TP SCH ×2 (09:39→21:45)
[2018-01-11] MEDS: TOLNAFTATE 1% CREAM 15 GM TUBE TP SCH ×2 (09:39→21:46)
[2018-01-11] MEDS: hydrOXYzine PAMOATE 50 MG CAPSULE (FP) PO PRN (21:44)
[2018-01-11] MEDS: LIDOCAINE PATCH REMOVAL MC SCH (21:45)
[2018-01-11] MEDS: THIAMINE HCL 100 MG TABLET (FP) PO SCH (21:46)
[2018-01-12] MEDS: CROMOLYN SODIUM 4% OPHTH DROPS 10 ML BOTTLE OU SCH ×2 (05:00→09:50)
[2018-01-12] MEDS ORDERED: METHADONE HCL 10 MG TABLET ONE (05:08)
[2018-01-12] MEDS ORDERED: METHADONE HCL 40 MG DISPERSABLE TABLET ONE (05:08)
[2018-01-12] MEDS ORDERED: LEVOTHYROXINE NA 25 MCG TABLET (FP) ONE (05:09)
[2018-01-12] MEDS ORDERED: LEVOTHYROXINE NA 100 MCG TABLET (FP) ONE (05:09)
[2018-01-12] MEDS: METHADONE 80 MG, METHADONE 20 MG PO SCH (06:16)
[2018-01-12] MEDS: CYCLOBENZAPRINE HCL 5 MG TABLET PO SCH ×3 (06:17→21:19)
[2018-01-12] MEDS: LEVOTHYROXINE 25 MCG, LEVOTHYROXINE 100 MCG PO SCH (06:17)
[2018-01-12] MEDS ORDERED: PT OWN MED DRAWER 7, Y5N ONE (08:39)
[2018-01-12] MEDS: LIDOCAINE 5% TOPICAL PATCH TP SCH (09:51)
[2018-01-12] MEDS: PRENATAL VITAMINS W/ FOLIC ACID TABLET (FP) PO SCH (09:51)
[2018-01-12] MEDS: MINERAL OIL/PETROLAT/WATER TOPICAL CREAM 113 GM JAR TP SCH ×2 (09:53→21:19)
[2018-01-12] MEDS: NICOTINE 21 MG/24 HOURS TOPICAL PATCH TD SCH (09:53)
[2018-01-12] MEDS: TOLNAFTATE 1% CREAM 15 GM TUBE TP SCH ×2 (09:54→21:20)
[2018-01-12] MEDS: NICOTINE POLACRILEX 2 MG GUM BUC PRN ×4 (09:54→21:20)
[2018-01-12] MEDS: LIDOCAINE PATCH REMOVAL MC SCH (21:19)
[2018-01-12] MEDS: THIAMINE HCL 100 MG TABLET (FP) PO SCH (21:19)
[2018-01-12] MEDS: hydrOXYzine PAMOATE 50 MG CAPSULE (FP) PO PRN (21:19)
[2018-01-13] MEDS ORDERED: LEVOTHYROXINE NA 100 MCG TABLET (FP) ONE (04:46)
[2018-01-13] MEDS ORDERED: METHADONE HCL 10 MG TABLET ONE (04:46)
[2018-01-13] MEDS ORDERED: LEVOTHYROXINE NA 25 MCG TABLET (FP) ONE (04:46)
[2018-01-13] MEDS ORDERED: METHADONE HCL 40 MG DISPERSABLE TABLET ONE (04:46)
[2018-01-13] MEDS: CYCLOBENZAPRINE HCL 5 MG TABLET PO SCH ×3 (06:32→21:58)
[2018-01-13] MEDS: LEVOTHYROXINE 25 MCG, LEVOTHYROXINE 100 MCG PO SCH (06:32)
[2018-01-13] MEDS: METHADONE 80 MG, METHADONE 20 MG PO SCH (06:32)
[2018-01-13] MEDS ORDERED: PT OWN MED DRAWER 7, Y5N ONE (09:15)
[2018-01-13] MEDS: MINERAL OIL/PETROLAT/WATER TOPICAL CREAM 113 GM JAR TP SCH ×2 (10:17→21:58)
[2018-01-13] MEDS: LIDOCAINE 5% TOPICAL PATCH TP SCH (10:17)
[2018-01-13] MEDS: PRENATAL VITAMINS W/ FOLIC ACID TABLET (FP) PO SCH (10:17)
[2018-01-13] MEDS: NICOTINE 21 MG/24 HOURS TOPICAL PATCH TD SCH (10:18)
[2018-01-13] MEDS: TOLNAFTATE 1% CREAM 15 GM TUBE TP SCH ×2 (10:20→21:59)
[2018-01-13] MEDS: NICOTINE POLACRILEX 2 MG GUM BUC PRN ×2 (14:19→21:59)
[2018-01-13] MEDS: LIDOCAINE PATCH REMOVAL MC SCH (21:59)
[2018-01-13] MEDS: THIAMINE HCL 100 MG TABLET (FP) PO SCH (21:59)
[2018-01-14] MEDS ORDERED: METHADONE HCL 40 MG DISPERSABLE TABLET ONE (02:51)
[2018-01-14] MEDS ORDERED: METHADONE HCL 10 MG TABLET ONE (02:51)
[2018-01-14] MEDS ORDERED: LEVOTHYROXINE NA 25 MCG TABLET (FP) ONE (02:52)
[2018-01-14] MEDS ORDERED: LEVOTHYROXINE NA 100 MCG TABLET (FP) ONE (02:52)
[2018-01-14] MEDS: METHADONE 80 MG, METHADONE 20 MG PO SCH (06:19)
[2018-01-14] MEDS: LEVOTHYROXINE 25 MCG, LEVOTHYROXINE 100 MCG PO SCH (06:19)
[2018-01-14] MEDS: CYCLOBENZAPRINE HCL 5 MG TABLET PO SCH ×3 (06:19→21:04)
[2018-01-14] MEDS ORDERED: PT OWN MED DRAWER 7, Y5N ONE ×2 (08:30→20:07)
[2018-01-14] MEDS: NICOTINE 21 MG/24 HOURS TOPICAL PATCH TD SCH (09:34)
[2018-01-14] MEDS: LIDOCAINE 5% TOPICAL PATCH TP SCH (09:34)
[2018-01-14] MEDS: PRENATAL VITAMINS W/ FOLIC ACID TABLET (FP) PO SCH (09:34)
[2018-01-14] MEDS: MINERAL OIL/PETROLAT/WATER TOPICAL CREAM 113 GM JAR TP SCH ×2 (09:35→21:05)
[2018-01-14] MEDS: TOLNAFTATE 1% CREAM 15 GM TUBE TP SCH ×2 (09:35→21:05)
[2018-01-14] MEDS: NICOTINE POLACRILEX 2 MG GUM BUC PRN ×4 (09:36→22:46)
[2018-01-14] MEDS: THIAMINE HCL 100 MG TABLET (FP) PO SCH (21:05)
[2018-01-14] MEDS: LIDOCAINE PATCH REMOVAL MC SCH (22:19)
[2018-01-15] MEDS ORDERED: METHADONE HCL 40 MG DISPERSABLE TABLET ONE (02:42)
[2018-01-15] MEDS ORDERED: METHADONE HCL 10 MG TABLET ONE (02:42)
[2018-01-15] MEDS ORDERED: LEVOTHYROXINE NA 25 MCG TABLET (FP) ONE (02:43)
[2018-01-15] MEDS ORDERED: LEVOTHYROXINE NA 100 MCG TABLET (FP) ONE (02:43)
[2018-01-15] MEDS: CYCLOBENZAPRINE HCL 5 MG TABLET PO SCH ×3 (06:35→21:59)
[2018-01-15] MEDS: LEVOTHYROXINE 25 MCG, LEVOTHYROXINE 100 MCG PO SCH (06:35)
[2018-01-15] MEDS: METHADONE 80 MG, METHADONE 20 MG PO SCH (06:35)
[2018-01-15] MEDS ORDERED: PT OWN MED DRAWER 7, Y5N ONE ×2 (08:37→23:51)
[2018-01-15] MEDS ORDERED: IBUPROFEN 400 MG TABLET (FP) PO PRN (09:43)
[2018-01-15] MEDS ORDERED: IBUPROFEN 600 MG TABLET (FP) PO PRN (09:45)
--- NOTE | 2018-01-15 09:47 | PN ---
S Progress Note Note: Vital Signs Temperature 97.8 F 01/15/18 06:53 Pulse Rate 75 01/15/18 06:53 Respiratory Rate 18 01/15/18 06:53 Blood Pressure 116/74 01/15/18 06:53 O2 Sat by Pulse Oximetry (%) Patient c/o sore throat and pain with swallowing . A/P Patient Aox3 no distress + pharyngeal erythema no adventitious breath sounds skin intact no erythema or lesion FULL ROM, no joint effusion or erythema sore throat Plan: throat culture ibuprofen PRN increase fluids peridex mouth wash BID continue to monitor
[2018-01-15] MEDS: PRENATAL VITAMINS W/ FOLIC ACID TABLET (FP) PO SCH (09:51)
[2018-01-15] MEDS: LIDOCAINE 5% TOPICAL PATCH TP SCH (09:51)
[2018-01-15] MEDS: NICOTINE 21 MG/24 HOURS TOPICAL PATCH TD SCH (09:51)
[2018-01-15] MEDS: TOLNAFTATE 1% CREAM 15 GM TUBE TP SCH ×2 (09:52→21:59)
[2018-01-15] MEDS: MINERAL OIL/PETROLAT/WATER TOPICAL CREAM 113 GM JAR TP SCH ×2 (09:52→21:58)
[2018-01-15] MEDS: NICOTINE POLACRILEX 2 MG GUM BUC PRN ×4 (09:53→22:01)
[2018-01-15] MEDS ORDERED: METHYL SALICYLATE/MENTHOL OINT 30 GM TUBE TP SCH (10:00)
[2018-01-15] MEDS: CHLORHEXIDINE GLUCONATE 0.12% 15ML CUP MM SCH ×2 (11:28→22:00)
[2018-01-15] MEDS: LIDOCAINE PATCH REMOVAL MC SCH (21:58)
[2018-01-15] MEDS: THIAMINE HCL 100 MG TABLET (FP) PO SCH (21:59)
[2018-01-15] MEDS: COLLOIDAL OATMEAL 1 BAR EACH TP PRN (22:01)
[2018-01-16] MEDS ORDERED: METHADONE HCL 40 MG DISPERSABLE TABLET ONE (04:34)
[2018-01-16] MEDS ORDERED: METHADONE HCL 10 MG TABLET ONE (04:34)
[2018-01-16] MEDS ORDERED: LEVOTHYROXINE NA 25 MCG TABLET (FP) ONE ×2 (04:35→04:37)
[2018-01-16] MEDS: METHADONE 80 MG, METHADONE 20 MG PO SCH (06:21)
[2018-01-16] MEDS: LEVOTHYROXINE 25 MCG, LEVOTHYROXINE 100 MCG PO SCH (06:21)
[2018-01-16] MEDS: CYCLOBENZAPRINE HCL 5 MG TABLET PO SCH ×3 (06:21→21:41)
[2018-01-16] MEDS ORDERED: PT OWN MED DRAWER 7, Y5N ONE ×2 (08:21→09:42)
[2018-01-16] MEDS: NICOTINE POLACRILEX 2 MG GUM BUC PRN ×4 (08:26→21:41)
[2018-01-16] MEDS: NICOTINE 21 MG/24 HOURS TOPICAL PATCH TD SCH (09:39)
[2018-01-16] MEDS: PRENATAL VITAMINS W/ FOLIC ACID TABLET (FP) PO SCH (09:39)
[2018-01-16] MEDS: LIDOCAINE 5% TOPICAL PATCH TP SCH (09:40)
[2018-01-16] MEDS: MINERAL OIL/PETROLAT/WATER TOPICAL CREAM 113 GM JAR TP SCH ×2 (09:42→21:41)
[2018-01-16] MEDS: CHLORHEXIDINE GLUCONATE 0.12% 15ML CUP MM SCH ×2 (09:43→21:40)
[2018-01-16] MEDS: TOLNAFTATE 1% CREAM 15 GM TUBE TP SCH ×2 (10:10→21:42)
[2018-01-16] MEDS: THIAMINE HCL 100 MG TABLET (FP) PO SCH (21:41)
[2018-01-16] MEDS: LIDOCAINE PATCH REMOVAL MC SCH (22:04)
[2018-01-17] MEDS ORDERED: LEVOTHYROXINE NA 25 MCG TABLET (FP) ONE (02:51)
[2018-01-17] MEDS ORDERED: METHADONE HCL 40 MG DISPERSABLE TABLET ONE (02:51)
[2018-01-17] MEDS ORDERED: METHADONE HCL 10 MG TABLET ONE (02:51)
[2018-01-17] MEDS ORDERED: LEVOTHYROXINE NA 100 MCG TABLET (FP) ONE (02:51)
[2018-01-17] MEDS: METHADONE 80 MG, METHADONE 20 MG PO SCH (06:31)
[2018-01-17] MEDS: LEVOTHYROXINE 25 MCG, LEVOTHYROXINE 100 MCG PO SCH (06:32)
[2018-01-17] MEDS: CYCLOBENZAPRINE HCL 5 MG TABLET PO SCH ×3 (06:32→21:27)
[2018-01-17] MEDS ORDERED: PT OWN MED DRAWER 7, Y5N ONE (08:55)
[2018-01-17] MEDS: MINERAL OIL/PETROLAT/WATER TOPICAL CREAM 113 GM JAR TP SCH ×2 (09:48→21:29)
[2018-01-17] MEDS: LIDOCAINE 5% TOPICAL PATCH TP SCH (09:48)
[2018-01-17] MEDS: NICOTINE 21 MG/24 HOURS TOPICAL PATCH TD SCH (09:48)
[2018-01-17] MEDS: PRENATAL VITAMINS W/ FOLIC ACID TABLET (FP) PO SCH (09:48)
[2018-01-17] MEDS: TOLNAFTATE 1% CREAM 15 GM TUBE TP SCH ×2 (09:48→21:29)
[2018-01-17] MEDS: CHLORHEXIDINE GLUCONATE 0.12% 15ML CUP MM SCH (09:48)
[2018-01-17] MEDS: NICOTINE POLACRILEX 2 MG GUM BUC PRN ×3 (09:54→21:28)
[2018-01-17] MEDS: THIAMINE HCL 100 MG TABLET (FP) PO SCH (21:27)
[2018-01-17] MEDS: LIDOCAINE PATCH REMOVAL MC SCH (21:29)
[2018-01-18] MEDS ORDERED: METHADONE HCL 40 MG DISPERSABLE TABLET ONE (02:50)
[2018-01-18] MEDS ORDERED: METHADONE HCL 10 MG TABLET ONE (02:50)
[2018-01-18] MEDS ORDERED: LEVOTHYROXINE NA 25 MCG TABLET (FP) ONE (02:50)
[2018-01-18] MEDS ORDERED: LEVOTHYROXINE NA 100 MCG TABLET (FP) ONE (02:50)
[2018-01-18] MEDS: LEVOTHYROXINE 25 MCG, LEVOTHYROXINE 100 MCG PO SCH (06:26)
[2018-01-18] MEDS: METHADONE 80 MG, METHADONE 20 MG PO SCH (06:26)
[2018-01-18] MEDS: CYCLOBENZAPRINE HCL 5 MG TABLET PO SCH ×3 (06:26→21:34)
[2018-01-18] MEDS: NICOTINE 21 MG/24 HOURS TOPICAL PATCH TD SCH (09:52)
[2018-01-18] MEDS: LIDOCAINE 5% TOPICAL PATCH TP SCH (09:52)
[2018-01-18] MEDS: PRENATAL VITAMINS W/ FOLIC ACID TABLET (FP) PO SCH (09:52)
[2018-01-18] MEDS: MINERAL OIL/PETROLAT/WATER TOPICAL CREAM 113 GM JAR TP SCH ×2 (09:52→21:35)
[2018-01-18] MEDS: NICOTINE POLACRILEX 2 MG GUM BUC PRN ×2 (09:54→13:43)
[2018-01-18] MEDS: TOLNAFTATE 1% CREAM 15 GM TUBE TP SCH ×2 (10:02→21:35)
[2018-01-18] MEDS ORDERED: PT OWN MED DRAWER 7, Y5N ONE (11:14)
[2018-01-18] MEDS: THIAMINE HCL 100 MG TABLET (FP) PO SCH (21:34)
[2018-01-18] MEDS: LIDOCAINE PATCH REMOVAL MC SCH (21:35)
[2018-01-19] MEDS ORDERED: METHADONE HCL 10 MG TABLET ONE (02:39)
[2018-01-19] MEDS ORDERED: METHADONE HCL 40 MG DISPERSABLE TABLET ONE (02:39)
[2018-01-19] MEDS ORDERED: LEVOTHYROXINE NA 100 MCG TABLET (FP) ONE (02:40)
[2018-01-19] MEDS ORDERED: LEVOTHYROXINE NA 25 MCG TABLET (FP) ONE (02:40)
[2018-01-19] MEDS: LEVOTHYROXINE 25 MCG, LEVOTHYROXINE 100 MCG PO SCH (06:49)
[2018-01-19] MEDS: CYCLOBENZAPRINE HCL 5 MG TABLET PO SCH ×3 (06:49→21:26)
[2018-01-19] MEDS: METHADONE 80 MG, METHADONE 20 MG PO SCH (06:49)
[2018-01-19] MEDS: NICOTINE POLACRILEX 2 MG GUM BUC PRN ×4 (08:54→21:27)
[2018-01-19] MEDS: LIDOCAINE 5% TOPICAL PATCH TP SCH (09:34)
[2018-01-19] MEDS: NICOTINE 21 MG/24 HOURS TOPICAL PATCH TD SCH (09:34)
[2018-01-19] MEDS: PRENATAL VITAMINS W/ FOLIC ACID TABLET (FP) PO SCH (09:34)
[2018-01-19] MEDS: TOLNAFTATE 1% CREAM 15 GM TUBE TP SCH ×2 (09:34→21:44)
[2018-01-19] MEDS: MINERAL OIL/PETROLAT/WATER TOPICAL CREAM 113 GM JAR TP SCH ×2 (09:34→21:44)
[2018-01-19] MEDS: CHLORHEXIDINE GLUCONATE 118 ML MOUTHWASH MM SCH ×2 (11:45→21:44)
[2018-01-19] MEDS ORDERED: PT OWN MED DRAWER 7, Y5N ONE ×2 (13:50→20:35)
[2018-01-19] MEDS: THIAMINE HCL 100 MG TABLET (FP) PO SCH (21:26)
[2018-01-19] MEDS: LIDOCAINE PATCH REMOVAL MC SCH (22:09)
[2018-01-20] MEDS ORDERED: METHADONE HCL 10 MG TABLET ONE (03:49)
[2018-01-20] MEDS ORDERED: METHADONE HCL 40 MG DISPERSABLE TABLET ONE (03:49)
[2018-01-20] MEDS ORDERED: LEVOTHYROXINE NA 25 MCG TABLET (FP) ONE (03:49)
[2018-01-20] MEDS ORDERED: LEVOTHYROXINE NA 100 MCG TABLET (FP) ONE (03:50)
[2018-01-20] MEDS: CYCLOBENZAPRINE HCL 5 MG TABLET PO SCH ×3 (06:35→21:37)
[2018-01-20] MEDS: METHADONE 80 MG, METHADONE 20 MG PO SCH (06:35)
[2018-01-20] MEDS: LEVOTHYROXINE 25 MCG, LEVOTHYROXINE 100 MCG PO SCH (06:35)
[2018-01-20] MEDS: PRENATAL VITAMINS W/ FOLIC ACID TABLET (FP) PO SCH (09:16)
[2018-01-20] MEDS: LIDOCAINE 5% TOPICAL PATCH TP SCH (09:16)
[2018-01-20] MEDS: NICOTINE 21 MG/24 HOURS TOPICAL PATCH TD SCH (09:16)
[2018-01-20] MEDS: CHLORHEXIDINE GLUCONATE 118 ML MOUTHWASH MM SCH ×2 (09:17→21:37)
[2018-01-20] MEDS ORDERED: PT OWN MED DRAWER 7, Y5N ONE ×2 (09:18→18:38)
[2018-01-20] MEDS: COLLOIDAL OATMEAL 1 BAR EACH TP PRN (09:18)
[2018-01-20] MEDS: MINERAL OIL/PETROLAT/WATER TOPICAL CREAM 113 GM JAR TP SCH ×2 (09:20→22:22)
[2018-01-20] MEDS: NICOTINE POLACRILEX 2 MG GUM BUC PRN ×3 (09:20→21:39)
[2018-01-20] MEDS: TOLNAFTATE 1% CREAM 15 GM TUBE TP SCH ×2 (10:02→21:37)
[2018-01-20] MEDS: LIDOCAINE PATCH REMOVAL MC SCH (21:37)
[2018-01-20] MEDS: THIAMINE HCL 100 MG TABLET (FP) PO SCH (21:37)
[2018-01-21] MEDS ORDERED: LEVOTHYROXINE NA 100 MCG TABLET (FP) ONE (04:34)
[2018-01-21] MEDS ORDERED: LEVOTHYROXINE NA 25 MCG TABLET (FP) ONE (04:34)
[2018-01-21] MEDS ORDERED: METHADONE HCL 10 MG TABLET ONE (04:34)
[2018-01-21] MEDS ORDERED: METHADONE HCL 40 MG DISPERSABLE TABLET ONE (04:34)
[2018-01-21] MEDS: LEVOTHYROXINE 25 MCG, LEVOTHYROXINE 100 MCG PO SCH (06:24)
[2018-01-21] MEDS: METHADONE 80 MG, METHADONE 20 MG PO SCH (06:24)
[2018-01-21] MEDS: CYCLOBENZAPRINE HCL 5 MG TABLET PO SCH ×3 (06:24→21:36)
[2018-01-21] MEDS: NICOTINE POLACRILEX 2 MG GUM BUC PRN ×3 (08:30→21:37)
[2018-01-21] MEDS: NICOTINE 21 MG/24 HOURS TOPICAL PATCH TD SCH (09:50)
[2018-01-21] MEDS: PRENATAL VITAMINS W/ FOLIC ACID TABLET (FP) PO SCH (09:50)
[2018-01-21] MEDS: LIDOCAINE 5% TOPICAL PATCH TP SCH (09:50)
[2018-01-21] MEDS: CHLORHEXIDINE GLUCONATE 118 ML MOUTHWASH MM SCH (09:51)
[2018-01-21] MEDS: MINERAL OIL/PETROLAT/WATER TOPICAL CREAM 113 GM JAR TP SCH ×2 (09:51→22:10)
[2018-01-21] MEDS: TOLNAFTATE 1% CREAM 15 GM TUBE TP SCH ×2 (10:25→22:10)
[2018-01-21] MEDS ORDERED: PT OWN MED DRAWER 7, Y5N ONE (20:37)
[2018-01-21] MEDS: THIAMINE HCL 100 MG TABLET (FP) PO SCH (21:36)
[2018-01-21] MEDS: LIDOCAINE PATCH REMOVAL MC SCH (22:10)
[2018-01-22] MEDS ORDERED: LEVOTHYROXINE NA 25 MCG TABLET (FP) ONE (03:45)
[2018-01-22] MEDS ORDERED: LEVOTHYROXINE NA 100 MCG TABLET (FP) ONE (03:46)
[2018-01-22] MEDS ORDERED: METHADONE HCL 40 MG DISPERSABLE TABLET ONE (05:27)
[2018-01-22] MEDS ORDERED: METHADONE HCL 10 MG TABLET ONE (05:27)
[2018-01-22] MEDS: METHADONE 80 MG, METHADONE 20 MG PO SCH (06:16)
[2018-01-22] MEDS: LEVOTHYROXINE 25 MCG, LEVOTHYROXINE 100 MCG PO SCH (06:16)
[2018-01-22] MEDS: CYCLOBENZAPRINE HCL 5 MG TABLET PO SCH (06:16)
[2018-01-22] MEDS: PRENATAL VITAMINS W/ FOLIC ACID TABLET (FP) PO SCH (09:49)
[2018-01-22] MEDS: NICOTINE 21 MG/24 HOURS TOPICAL PATCH TD SCH (09:49)
[2018-01-22] MEDS: LIDOCAINE 5% TOPICAL PATCH TP SCH (09:50)
[2018-01-22] MEDS: TOLNAFTATE 1% CREAM 15 GM TUBE TP SCH ×2 (09:51→21:37)
[2018-01-22] MEDS: MINERAL OIL/PETROLAT/WATER TOPICAL CREAM 113 GM JAR TP SCH ×2 (09:51→21:36)
[2018-01-22] MEDS: NICOTINE POLACRILEX 2 MG GUM BUC PRN ×3 (09:51→20:40)
[2018-01-22] MEDS: CYCLOBENZAPRINE HCL 10 MG TABLET (FP) PO SCH ×2 (14:10→21:36)
[2018-01-22] MEDS ORDERED: PT OWN MED DRAWER 7, Y5N ONE (18:36)
[2018-01-22] MEDS: THIAMINE HCL 100 MG TABLET (FP) PO SCH (21:36)
[2018-01-22] MEDS: LIDOCAINE PATCH REMOVAL MC SCH (21:37)
[2018-01-23] MEDS ORDERED: METHADONE HCL 10 MG TABLET ONE (02:45)
[2018-01-23] MEDS ORDERED: METHADONE HCL 40 MG DISPERSABLE TABLET ONE (02:45)
[2018-01-23] MEDS ORDERED: LEVOTHYROXINE NA 25 MCG TABLET (FP) ONE (02:45)
[2018-01-23] MEDS ORDERED: LEVOTHYROXINE NA 100 MCG TABLET (FP) ONE (02:46)
[2018-01-23] MEDS: METHADONE 80 MG, METHADONE 20 MG PO SCH (06:27)
[2018-01-23] MEDS: LEVOTHYROXINE 25 MCG, LEVOTHYROXINE 100 MCG PO SCH (06:28)
[2018-01-23] MEDS: CYCLOBENZAPRINE HCL 10 MG TABLET (FP) PO SCH ×3 (06:28→21:23)
[2018-01-23] MEDS: NICOTINE POLACRILEX 2 MG GUM BUC PRN ×4 (08:54→21:23)
[2018-01-23] MEDS: LIDOCAINE 5% TOPICAL PATCH TP SCH (09:43)
[2018-01-23] MEDS: PRENATAL VITAMINS W/ FOLIC ACID TABLET (FP) PO SCH (09:43)
[2018-01-23] MEDS: MINERAL OIL/PETROLAT/WATER TOPICAL CREAM 113 GM JAR TP SCH ×2 (09:44→21:23)
[2018-01-23] MEDS: TOLNAFTATE 1% CREAM 15 GM TUBE TP SCH ×2 (09:44→21:23)
[2018-01-23] MEDS: NICOTINE 21 MG/24 HOURS TOPICAL PATCH TD SCH (09:44)
[2018-01-23] MEDS: hydrOXYzine PAMOATE 50 MG CAPSULE (FP) PO PRN (21:22)
[2018-01-23] MEDS: THIAMINE HCL 100 MG TABLET (FP) PO SCH (21:22)
[2018-01-23] MEDS: LIDOCAINE PATCH REMOVAL MC SCH (21:23)
[2018-01-24] MEDS ORDERED: LEVOTHYROXINE NA 100 MCG TABLET (FP) ONE (04:20)
[2018-01-24] MEDS ORDERED: LEVOTHYROXINE NA 25 MCG TABLET (FP) ONE (04:20)
[2018-01-24] MEDS ORDERED: METHADONE HCL 10 MG TABLET ONE (05:31)
[2018-01-24] MEDS ORDERED: METHADONE HCL 40 MG DISPERSABLE TABLET ONE (05:31)
[2018-01-24] MEDS: CYCLOBENZAPRINE HCL 10 MG TABLET (FP) PO SCH ×2 (06:11→14:28)
[2018-01-24] MEDS: LEVOTHYROXINE 25 MCG, LEVOTHYROXINE 100 MCG PO SCH (06:12)
[2018-01-24] MEDS: METHADONE 80 MG, METHADONE 20 MG PO SCH (06:12)
[2018-01-24] MEDS: NICOTINE POLACRILEX 2 MG GUM BUC PRN ×4 (08:32→21:04)
--- NOTE | 2018-01-24 09:41 | PN ---
Psychiatric Progress Note Vital Signs: Vital Signs Period Temp Pulse Resp BP Sys/Matos Pulse Ox Last 24 Hr 98 F 86 18-20 99/59 Date of Session: 01/24/18 Chief Complaint:: Discharge Note HPI: Patient addressing Cocaine and Cannabis Dependence comorbid with Opioid Dependence on Agonist Therapy, Nicotine Dependence, ADHD, Bipolar Disorder, Posttraumatic Stress Disorder, Substance-Induced Mood Disorder and Substance- Induced Sleep Disorder ROS: Hypothyroisdism, Hep C, Seizure Disorder Current Medications: Active Medications Generic Name Dose Route Start Last Admin Trade Name Freq PRN Reason Stop Dose Admin Acetaminophen 650 mg 12/27/17 22:56 12/31/17 09:57 Tylenol - PO 650 mg Q4H PRN Administration FEVER Al Hydroxide/Mg Hydroxide 30 ml 12/27/17 22:56 Mylanta Oral Suspension - PO Q6H PRN DYSPEPSIA Colloidal Oatmeal 1 applic 01/09/18 15:21 01/20/18 09:18 Aveeno Soap - TP 1 applic DAILY PRN Administration HYGEINE Cyclobenzaprine HCl 5 mg 01/22/18 14:00 01/24/18 06:11 Flexeril - PO 5 mg TID SHERI Administration Eucalyptus/Menthol/Phenol/Sorbitol 1 each 12/27/17 22:56 01/03/18 09:41 Cepastat Lozenge - MM 1 each Q4H PRN Administration SORE THROAT Guaifenesin 10 ml 12/27/17 22:56 01/03/18 09:41 Robitussin Dm - PO 10 ml Q6H PRN Administration COUGH Hydroxyzine Pamoate 50 mg 12/27/17 22:56 01/23/18 21:22 Vistaril - PO 50 mg Q4H PRN Administration AGITATION Ibuprofen 600 mg 01/15/18 09:45 Motrin - PO Q6H PRN PAIN LEVEL 6-10 Levothyroxine Sodium 25 mcg/ 125 mcg 12/28/17 09:00 01/24/18 06:12 Levothyroxine Sodium 100 mcg PO 125 mcg DAILY@0700 SHERI Administration Lidocaine 1 patch 01/03/18 14:00 01/23/18 09:43 Lidoderm Patch - TP 1 patch DAILY SHERI Administration Loperamide HCl 4 mg 12/27/17 22:56 Imodium - PO Q6H PRN DIARRHEA Magnesium Citrate 300 ml 12/27/17 22:56 Citroma - PO Q48H PRN CONSTIPATION Magnesium Hydroxide 30 ml 12/27/17 22:56 Milk Of Magnesia - PO DAILY PRN CONSTIPATION Melatonin 5 mg 12/27/17 22:00 01/17/18 21:27 Melatonin PO 5 mg HS PRN Administration INSOMNIA Methadone HCl 80 mg/ Methadone 100 mg 01/22/18 06:00 01/24/18 06:12 HCl 20 mg PO 01/29/18 05:59 100 mg DAILY@0600 SHERI Administration Miscellaneous 1 each 01/03/18 22:00 01/23/18 21:23 Lidoderm Patch Removal MC 1 each DAILY@2200 SHERI Administration Multi-Ingredient Lotion 1 applic 01/09/18 22:00 01/23/18 21:23 Eucerin (Small Jar) - TP Not Given BID SHERI Nicotine 21 mg 12/28/17 10:00 01/23/18 09:44 Nicoderm Patch - TD 21 mg DAILY SHERI Administration Nicotine Polacrilex 2 mg 12/27/17 22:56 01/24/18 08:32 Nicorette Gum - BUC 2 mg Q2H PRN Administration NICOTINE REPLACEMENT RX Multivit/Folic Acid/Iron 1 tab 12/28/17 10:00 01/23/18 09:43 Vitamins (Sjr) - PO 1 tab DAILY SHERI Administration Pseudoephedrine/Triprolidine 1 combo 12/27/17 22:56 Actifed - PO TID PRN NASAL CONGESTION Thiamine HCl 100 mg 12/28/17 22:00 01/23/18 21:22 Vitamin B1 - PO 100 mg HS SHERI Administration Tolnaftate 1 applic 01/10/18 22:00 01/23/18 21:23 Tinactin 1% Cream - TP 1 applic BID SHERI Administration Current Side Effect: No Lab tests ordered: Yes Lab tests reviewed: Yes Provider note:: Patient will complete this program on 01/25/18. He has met his treatment goals and will continue to address his issues in outpatient treatment at [facility]. Told insurance underwriter that from his participation in this program, he has learned to identify his triggers and better ways to stay away from them. He is stable for discharge on 01/25/18 Total face to face time:: 35 Mental Status Exam - Mental Status Exam Alert and Oriented to: Time, Place, Person Cognitive Function: Fair Patient Appearance: Well Groomed Mood: Hopeful, Euthymic Affect: Appropriate Patient Behavior: Cooperative Speech Pattern: Clear Voice Loudness: Normal Thought Process: Intact, Goal Oriented Thought Disorder: Not Present Hallucinations: Denies Suicidal Ideation: Denies Homicidal Ideation: Denies Insight/Judgement: Fair Sleep: Fair Appetite: Good Muscle strength/Tone: Normal Gait/Station: Normal Psychiatric Treatment Plan - Problem List (1) Cocaine dependence Current Visit: Yes (2) Cannabis dependence Current Visit: Yes (3) Opioid dependence on agonist therapy Current Visit: Yes (4) Nicotine dependence Current Visit: Yes Qualifiers: Nicotine product type: cigarettes Substance use status: uncomplicated Qualified Code(s): F17.210 - Nicotine dependence, cigarettes, uncomplicated (5) ADHD (attention deficit hyperactivity disorder) Current Visit: Yes (6) Bipolar disorder Current Visit: Yes (7) PTSD (post-traumatic stress disorder) Current Visit: Yes (8) Substance induced mood disorder Current Visit: Yes (9) Substance-induced sleep disorder Current Visit: Yes (10) Hypothyroidism Current Visit: Yes (11) Seizure disorder Current Visit: Yes (12) Hepatitis C Current Visit: Yes Initial treatment plan: Patient will be discharged tomorrow and referred to [facility] for outpatient treatment
[2018-01-24] MEDS: PRENATAL VITAMINS W/ FOLIC ACID TABLET (FP) PO SCH (10:00)
[2018-01-24] MEDS: NICOTINE 21 MG/24 HOURS TOPICAL PATCH TD SCH (10:00)
[2018-01-24] MEDS: LIDOCAINE 5% TOPICAL PATCH TP SCH (10:00)
[2018-01-24] MEDS: MINERAL OIL/PETROLAT/WATER TOPICAL CREAM 113 GM JAR TP SCH ×2 (10:01→21:03)
[2018-01-24] MEDS: TOLNAFTATE 1% CREAM 15 GM TUBE TP SCH ×2 (10:01→21:03)
[2018-01-24] MEDS: CYCLOBENZAPRINE HCL 5 MG TABLET PO SCH (21:02)
[2018-01-24] MEDS: THIAMINE HCL 100 MG TABLET (FP) PO SCH (21:02)
[2018-01-24] MEDS: LIDOCAINE PATCH REMOVAL MC SCH (21:03)
[2018-01-25] MEDS ORDERED: LEVOTHYROXINE NA 25 MCG TABLET (FP) ONE (04:03)
[2018-01-25] MEDS ORDERED: LEVOTHYROXINE NA 100 MCG TABLET (FP) ONE (04:04)
[2018-01-25] MEDS ORDERED: METHADONE HCL 10 MG TABLET ONE (05:30)
[2018-01-25] MEDS ORDERED: METHADONE HCL 40 MG DISPERSABLE TABLET ONE (05:31)
[2018-01-25] MEDS: CYCLOBENZAPRINE HCL 5 MG TABLET PO SCH (06:00)
[2018-01-25] MEDS: METHADONE 80 MG, METHADONE 20 MG PO SCH (06:00)
[2018-01-25] MEDS: LEVOTHYROXINE 25 MCG, LEVOTHYROXINE 100 MCG PO SCH (06:00)
[2018-01-25 06:51] VITALS: BP 115/75; PULSE 85; TEMP 97.8
== END 2018-01-25 06:40 | disposition home or self-care (01) | DRG 773 ==
LOC: YASAS 18:11 → Y3W 22:50
PROVIDERS: ADMIT Psychiatry & Neurology Psychiatry; ATTEND Psychiatry & Neurology Psychiatry
PROC: HZ2ZZZZ Detoxification Services for Substance Abuse Treatment (ICD-10-PCS; principal; 2017-12-27)
DX: F14.20 Cocaine dependence, uncomplicated (principal); F11.20 Opioid dependence, uncomplicated; F12.20 Cannabis dependence, uncomplicated; F17.210 Nicotine dependence, cigarettes, uncomplicated; F90.9 Attention-deficit hyperactivity disorder, unspecified type; F31.9 Bipolar disorder, unspecified; F43.10 Post-traumatic stress disorder, unspecified; F19.24 Other psychoactive substance dependence with psychoactive substance-induced mood disorder; F19.282 Other psychoactive substance dependence with psychoactive substance-induced sleep disorder; E03.9 Hypothyroidism, unspecified; G40.509 Epileptic seizures related to external causes, not intractable, without status epilepticus; B18.2 Chronic viral hepatitis C; H91.92 Unspecified hearing loss, left ear; H10.13 Acute atopic conjunctivitis, bilateral; L98.8 Other specified disorders of the skin and subcutaneous tissue; Z91.14 Patient's other noncompliance with medication regimen; Z91.013 Allergy to seafood; Z59.0 Homelessness
CPT/HCPCS: 36415; 80053; 81003; 81015; 85027; 86593; 87070; 93005; 93010

== ENCOUNTER 2018-07-19 14:41 | Inpatient (IN) | payer OTHER ==
[2018-07-19 15:22] VITALS: BMI 25.8
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
[2018-07-19] MEDS ORDERED: MAGNESIUM CITRATE 300 ML BOTTLE PO PRN (16:17)
[2018-07-19] MEDS ORDERED: P-EPHED 60MG/TRIPROLIDI 2.5MG TABLET PO PRN (16:17)
[2018-07-19] MEDS ORDERED: ACETAMINOPHEN 325 MG TABLET (FP) PO PRN (16:17)
[2018-07-19] MEDS ORDERED: hydrOXYzine PAMOATE 50 MG CAPSULE (FP) PO PRN (16:17)
[2018-07-19] MEDS ORDERED: MAG HYDROX/AL HYDROX/SIMETH 30 ML UNIT-DOSE CUP PO PRN (16:17)
[2018-07-19] MEDS ORDERED: guaiFENesin/D-METHORPHAN HB 10 ML UNIT-DOSE CUPS PO PRN (16:17)
[2018-07-19] MEDS ORDERED: MAGNESIUM HYDROX 2400MG/30ML ORAL SUSPENSION 30 ML CUP PO PRN (16:17)
[2018-07-19] MEDS ORDERED: MENTHOL/PHENOL 1 EACH UD MM PRN (16:17)
[2018-07-19] MEDS ORDERED: IBUPROFEN 400 MG TABLET (FP) PO PRN (16:17)
[2018-07-19] MEDS ORDERED: NICOTINE POLACRILEX 2 MG GUM BC PRN (16:17)
[2018-07-19] MEDS ORDERED: COLLOIDAL OATMEAL 1 BAR EACH TP PRN (16:18)
[2018-07-19] MEDS ORDERED: AMMONIUM LACTATE 12% LOTION 225 GM BOTTLE TP PRN (16:18)
[2018-07-19] MEDS: chlordiazePOXIDE HCL 25 MG CAPSULE PO PRN (19:19)
[2018-07-19] MEDS ORDERED: MELATONIN 5 MG TABLETS PO PRN (22:00)
[2018-07-19] MEDS: THIAMINE HCL 100 MG TABLET (FP) PO SCH (22:40)
[2018-07-19] MEDS: chlordiazePOXIDE HCL 25 MG CAPSULE PO SCH (22:40)
[2018-07-19] MEDS: PHENYTOIN NA EXTENDED 100 MG CAPSULE (FP) PO SCH (22:41)
[2018-07-19] MEDS: HYDROCORTISONE 0.5% TOPICAL OINTMENT TUBE TP SCH (22:43)
[2018-07-20] MEDS: chlordiazePOXIDE HCL 25 MG CAPSULE PO SCH ×4 (06:36→22:28)
[2018-07-20] MEDS ORDERED: LEVOTHYROXINE NA 125 MCG TABLET (FP) PO SCH (07:00)
[2018-07-20] MEDS ORDERED: LEVOTHYROXINE NA 25 MCG TABLET (FP) ONE (07:32)
[2018-07-20] MEDS ORDERED: LEVOTHYROXINE NA 100 MCG TABLET (FP) ONE (07:32)
[2018-07-20] MEDS: LEVOTHYROXINE 25 MCG, LEVOTHYROXINE 100 MCG PO SCH (08:09)
--- NOTE | 2018-07-20 09:09 | PN ---
BHS CIWA - CIWA Score Nausea/Vomitin-Mild Nausea/No Vomiting Muscle Tremors: 3 Anxiety: 2 Agitation: 2 Paroxysmal Sweats: 1-Minimal Palms Moist Orientation: 1-Uncertain about Date Tacttile Disturbances: 0-None Auditory Disturbances: 0-None Visual Disturbances: 0-None Headache: 2-Mild CIWA-Ar Total Score: 12 BHS Progress Note (SOAP) Subjective: tremor sweating restlessness Objective: 07/20/18 09:09 Vital Signs Temperature 99.1 F 07/20/18 09:05 Pulse Rate 71 07/20/18 09:05 Respiratory Rate 18 07/20/18 09:05 Blood Pressure 116/73 07/20/18 09:05 O2 Sat by Pulse Oximetry (%) lab pending Assessment: 07/20/18 09:09 withdrawal sx Plan: continue detox
[2018-07-20] MEDS ORDERED: METHADONE HCL 40 MG DISPERSABLE TABLET PO ONE (10:00)
[2018-07-20] MEDS ORDERED: NICOTINE 7 MG/24 HOURS TOPICAL PATCH TD SCH (10:00)
[2018-07-20] MEDS: PRENATAL VITAMINS W/ FOLIC ACID TABLET (FP) PO SCH (10:12)
[2018-07-20] MEDS: PHENYTOIN NA EXTENDED 100 MG CAPSULE (FP) PO SCH (10:12)
[2018-07-20] MEDS: HYDROCORTISONE 0.5% TOPICAL OINTMENT TUBE TP SCH ×2 (10:13→22:27)
--- NOTE | 2018-07-20 10:22 | CONSULT ---
[facility] Psychiatric Consult - Data Date of interview: 07/20/18 Admission source: [facility] Identifying data: This is a 38 years old male , single father of two, homeless, on PA support, with psychiatric hospitalization history, history of Bip[olar Disorder, PTSD, ADHD, with Opioids, Alcohol, Cannabis, Cocaine dpendence/abuse, currently on MMTP 120mg per day.120mg per day, reports withdrawal symptoms and seeking detox. Substance Abuse History: Patient reports Opioid dependence, Cannabis and Copcaine dependence/abuse, reports MMTP 120mg per day. Smoking history: Current every day smoker. Have you smoked in the past 12 months: Yes. Aproximately how many cigarettes per day: 20. Cigars Per Day: 0. Hx Chewing Tobacco Use: No. Initiated information on smoking cessation: No Medical History: Hypothyroiditis, Seizure history, Left earing nissues, HepC+, chronic Conjunctivitis history. Psychiatric History: Patient reports history of Bip[olar Disaortder, PTSD, ADHD , reports most recent psychiatroc admission for safety on 2 years ago at [facility]. Reports no medications taking prior to admission.Denies suicidal and homicidal history as well. Physical/Sexual Abuse/Trauma History: Denies Additional Comment: Observation. Detox Unit Care Protocol Mental Status Exam - Mental Status Exam Additional Comments: Observation. Detox Unit Care Protocol Psychiatric Findings - Problem List ([place] 1, 2,3) (1) Alcohol dependence Current Visit: Yes Status: Acute Qualifiers: Substance use status: in withdrawal (2) Sedative hypnotic or anxiolytic dependence Current Visit: Yes Status: Acute (3) ADHD (attention deficit hyperactivity disorder) Current Visit: No Status: Acute (4) Cannabis dependence Current Visit: No Status: Acute (5) Cocaine dependence Current Visit: No Status: Acute (6) Conjunctivitis Current Visit: No Status: Acute Qualifiers: Conjunctivitis type: acute Acute conjunctivitis type: unspecified Laterality: bilateral Qualified Code(s): H10.33 - Unspecified acute conjunctivitis, bilateral (7) Hypothyroidism Current Visit: No Status: Acute (8) Substance induced mood disorder Current Visit: No Status: Acute (9) Bipolar disorder Current Visit: No Status: Chronic (10) Cannabis dependence, uncomplicated Current Visit: No Status: Chronic (11) Hearing loss in left ear Current Visit: No Status: Chronic (12) Methadone maintenance therapy patient Current Visit: No Status: Chronic (13) Non compliance w medication regimen Current Visit: No Status: Chronic (14) PTSD (post-traumatic stress disorder) Current Visit: No Status: Chronic (15) Substance induced mood disorder Current Visit: No Status: Suspected - Initial Treatment Plan Initial Treatment Plan: Observation. Detox Unit Care Protocol
[2018-07-20 10:33] LABS: HEMATOCRIT 42.2 % (35.4-49); HEMOGLOBIN 14.1 GM/dL (11.7-16.9); MCH 31.1 pg (25.7-33.7); MCHC 33.4 g/dl (32.0-35.9); MEAN PLT VOLUME 8.2 fl (7.5-11.1); PLATELET COUNT 271 K/MM3 (134-434); RBC 4.54 M/mm3 (4.00-5.60); RDW 13.7 % (11.9-15.9); WHITE BLOOD COUNT 8.3 K/mm3 (4.0-10.0)
[2018-07-20 10:40] LABS: ALBUMIN 3.6 g/dl (3.4-5.0); ALK PHOS 56 U/L (45-117); ANION GAP 5 MMOL/L (8-16); BILIRUBIN,TOTAL 0.4 mg/dL (0.2-1); BLOOD UREA NITROGEN 14 mg/dL (7-18); CHLORIDE 108 mmol/L (98-107); CO2 30 mmol/L (21-32); CREATININE 0.9 mg/dL (0.55-1.3); GLUCOSE,RANDOM 72 mg/dL (74-106); POTASSIUM 4.4 mmol/L (3.5-5.1); SGOT/AST 23 U/L (15-37); SGPT/ALT 22 U/L (13-61); SODIUM 143 mmol/L (136-145); TOT PROT 6.8 g/dl (6.4-8.2)
[2018-07-20] MEDS: NICOTINE 21 MG/24 HOURS TOPICAL PATCH TD SCH (11:36)
[2018-07-20] MEDS: NICOTINE POLACRILEX 4 MG GUM BUC PRN ×2 (13:09→18:07)
--- NOTE | 2018-07-20 14:20 | PN ---
[facility] Progress Note Note: engineering writer called [phone] to verify Dilantin dosage the pharmacist dose not have Dilantin record but synthroid 125 mcg po daily clarify the name of the pharmacy the name of the provider with the patient patient reported that he dose not remember when was the last dose of dilantin where he filled the dilantin and the name of the provider who prescribe the dilantin, patient is unable to describe when was first seizure and when was the last seizure and how long dilantin had been taken for seizure dilantin serum level discontinue dilantin now continue alcohol detoxing
[2018-07-20] MEDS ORDERED: chlordiazePOXIDE HCL 25 MG CAPSULE PO ONE (14:33)
[2018-07-20] MEDS ORDERED: PHENYTOIN NA EXTENDED 100 MG CAPSULE (FP) PO SCH (22:00)
[2018-07-20] MEDS ORDERED: PHENYTOIN NA EXTENDED 100 MG CAPSULE (FP) PO ONE (22:00)
[2018-07-20] MEDS: THIAMINE HCL 100 MG TABLET (FP) PO SCH (22:28)
[2018-07-21] MEDS ORDERED: LEVOTHYROXINE NA 100 MCG TABLET (FP) ONE (04:38)
[2018-07-21] MEDS ORDERED: LEVOTHYROXINE NA 25 MCG TABLET (FP) ONE (04:38)
[2018-07-21] MEDS ORDERED: METHADONE HCL 40 MG DISPERSABLE TABLET PO SCH (06:00)
[2018-07-21] MEDS: LEVOTHYROXINE 25 MCG, LEVOTHYROXINE 100 MCG PO SCH (06:13)
[2018-07-21] MEDS: chlordiazePOXIDE HCL 25 MG CAPSULE PO SCH ×3 (06:14→17:19)
[2018-07-21] MEDS: PRENATAL VITAMINS W/ FOLIC ACID TABLET (FP) PO SCH (10:36)
[2018-07-21] MEDS: HYDROCORTISONE 0.5% TOPICAL OINTMENT TUBE TP SCH ×2 (10:37→22:19)
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
[2018-07-21] MEDS: NICOTINE 21 MG/24 HOURS TOPICAL PATCH TD SCH (11:19)
[2018-07-21] MEDS: chlordiazePOXIDE HCL 25 MG CAPSULE PO PRN (14:44)
[2018-07-21] MEDS: NICOTINE POLACRILEX 4 MG GUM BUC PRN ×2 (17:20→22:19)
[2018-07-21] MEDS: THIAMINE HCL 100 MG TABLET (FP) PO SCH (22:15)
[2018-07-21] MEDS: BACITRACIN 0.9 GM PACKET TP SCH (22:16)
[2018-07-21] MEDS: chlordiazePOXIDE 5 MG CAPSULE PO SCH (22:16)
[2018-07-22] MEDS ORDERED: LEVOTHYROXINE NA 25 MCG TABLET (FP) ONE (04:11)
[2018-07-22] MEDS ORDERED: LEVOTHYROXINE NA 100 MCG TABLET (FP) ONE (04:11)
[2018-07-22] MEDS: chlordiazePOXIDE 5 MG CAPSULE PO SCH ×3 (06:14→17:07)
[2018-07-22] MEDS: LEVOTHYROXINE 25 MCG, LEVOTHYROXINE 100 MCG PO SCH (06:14)
[2018-07-22] MEDS: METHADONE HCL 40 MG DISPERSABLE TABLET PO SCH (10:46)
[2018-07-22] MEDS: NICOTINE 21 MG/24 HOURS TOPICAL PATCH TD SCH (10:49)
[2018-07-22] MEDS: HYDROCORTISONE 0.5% TOPICAL OINTMENT TUBE TP SCH ×2 (10:49→22:01)
[2018-07-22] MEDS: PRENATAL VITAMINS W/ FOLIC ACID TABLET (FP) PO SCH (10:49)
[2018-07-22] MEDS: BACITRACIN 0.9 GM PACKET TP SCH ×2 (10:49→22:01)
[2018-07-22] MEDS ORDERED: LOPERAMIDE HCL 2 MG CAPSULE PO PRN (13:50)
--- NOTE | 2018-07-22 14:39 | PN ---
BHS Progress Note (SOAP) Subjective: Diarrhea, Interrupted Sleep, Body Aches, Anxious. Objective: PATIENT A & O X 3, OBSERVED AMBULATING ON UNIT. IN NO ACUTE DISTRESS. 07/22/18 14:38 Vital Signs Temperature 98.4 F 07/22/18 13:42 Pulse Rate 87 07/22/18 13:42 Respiratory Rate 18 07/22/18 13:42 Blood Pressure 135/77 07/22/18 13:42 O2 Sat by Pulse Oximetry (%) Laboratory Tests 07/20/18 07/20/18 07/20/18 07:00 07:00 07:00 WBC 8.3 RBC 4.54 Hgb 14.1 Hct 42.2 MCV 93.0 MCH 31.1 MCHC 33.4 RDW 13.7 Plt Count 271 MPV 8.2 Sodium 143 Potassium 4.4 Chloride 108 H Carbon Dioxide 30 Anion Gap 5 L BUN 14 Creatinine 0.9 Creat Clearance w eGFR > 60 Random Glucose 72 L Calcium 9.0 Total Bilirubin 0.4 AST 23 ALT 22 Alkaline Phosphatase 56 Total Protein 6.8 Albumin 3.6 Phenytoin RPR Titer Nonreactive HIV 1&2 Antibody Screen HIV P24 Antigen 07/20/18 07/20/18 07:00 15:03 WBC RBC Hgb Hct MCV MCH MCHC RDW Plt Count MPV Sodium Potassium Chloride Carbon Dioxide Anion Gap BUN Creatinine Creat Clearance w eGFR Random Glucose Calcium Total Bilirubin AST ALT Alkaline Phosphatase Total Protein Albumin Phenytoin 5.0 L RPR Titer HIV 1&2 Antibody Screen Negative HIV P24 Antigen Negative LABS NOTED. Assessment: 07/22/18 14:38 withdrawal symptoms. Plan: CONTINUE DETOX. INCREASE DAILY PO FLUID INTAKE. PRN IMMODIUM PO FOR DIARRHEA.
[2018-07-22] MEDS: chlordiazePOXIDE HCL 25 MG CAPSULE PO PRN (15:56)
[2018-07-22] MEDS: CYCLOBENZAPRINE HCL 10 MG TABLET (FP) PO PRN ×2 (15:57→22:01)
[2018-07-22] MEDS: NICOTINE POLACRILEX 4 MG GUM BUC PRN ×2 (15:58→17:12)
[2018-07-22] MEDS: THIAMINE HCL 100 MG TABLET (FP) PO SCH (22:00)
[2018-07-22] MEDS: chlordiazePOXIDE HCL 10 MG CAPSULE PO SCH (22:01)
[2018-07-23] MEDS ORDERED: LEVOTHYROXINE NA 25 MCG TABLET (FP) ONE (03:25)
[2018-07-23] MEDS ORDERED: LEVOTHYROXINE NA 100 MCG TABLET (FP) ONE (03:26)
[2018-07-23] MEDS: chlordiazePOXIDE HCL 10 MG CAPSULE PO SCH ×2 (06:29→10:24)
[2018-07-23] MEDS: LEVOTHYROXINE 25 MCG, LEVOTHYROXINE 100 MCG PO SCH (06:29)
[2018-07-23 09:21] VITALS: BP 96/65; PULSE 77; TEMP 97.6
[2018-07-23] MEDS: METHADONE HCL 40 MG DISPERSABLE TABLET PO SCH (09:53)
[2018-07-23] MEDS: PRENATAL VITAMINS W/ FOLIC ACID TABLET (FP) PO SCH (09:53)
[2018-07-23] MEDS: HYDROCORTISONE 0.5% TOPICAL OINTMENT TUBE TP SCH (09:53)
[2018-07-23] MEDS: BACITRACIN 0.9 GM PACKET TP SCH (09:53)
[2018-07-23] MEDS: CYCLOBENZAPRINE HCL 10 MG TABLET (FP) PO PRN (09:53)
[2018-07-23] MEDS: NICOTINE 21 MG/24 HOURS TOPICAL PATCH TD SCH (09:55)
--- NOTE | 2018-07-23 09:59 | DS ---
[facility] Detox Discharge Summary Admission Date: 07/19/18 Discharge Date: 07/23/18 - History Present History: Alcohol Dependence Additional Comments: 38 years old male admitted on 07/19/18 for alcohol withdrawal stabilization completed alcohol detox regimen tolerated well alert no acute distress denies prodrome seizure signs a list of medication provided to the patient discuss important of adherence with prescribed medication informed update medication list as necessary when medication changes or discontinued strong recommend the patient to bring in list of medication and lab results to methadone maintenance program patient received 120 mg of methadone today Pertinent Past History: encourage patient return to [facility] admission - Physical Exam Results Vital Signs: Vital Signs Temperature 97.6 F 07/23/18 09:21 Pulse Rate 77 07/23/18 09:21 Respiratory Rate 18 07/23/18 09:21 Blood Pressure 96/65 07/23/18 09:21 O2 Sat by Pulse Oximetry (%) Pertinent Admission Physical Exam Findings: alcohol withdrawal sx Laboratory Last Values WBC 8.3 K/mm3 (4.0-10.0) 07/20/18 07:00 RBC 4.54 M/mm3 (4.00-5.60) 07/20/18 07:00 Hgb 14.1 GM/dL (11.7-16.9) 07/20/18 07:00 Hct 42.2 % (35.4-49) 07/20/18 07:00 MCV 93.0 fl (80-96) 07/20/18 07:00 MCH 31.1 pg (25.7-33.7) 07/20/18 07:00 MCHC 33.4 g/dl (32.0-35.9) 07/20/18 07:00 RDW 13.7 % (11.9-15.9) 07/20/18 07:00 Plt Count 271 K/MM3 (134-434) 07/20/18 07:00 MPV 8.2 fl (7.5-11.1) 07/20/18 07:00 Sodium 143 mmol/L (136-145) 07/20/18 07:00 Potassium 4.4 mmol/L (3.5-5.1) 07/20/18 07:00 Chloride 108 mmol/L (98-107) H 07/20/18 07:00 Carbon Dioxide 30 mmol/L (21-32) 07/20/18 07:00 Anion Gap 5 MMOL/L (8-16) L 07/20/18 07:00 BUN 14 mg/dL (7-18) 07/20/18 07:00 Creatinine 0.9 mg/dL (0.55-1.3) 07/20/18 07:00 Creat Clearance w eGFR > 60 (>60) 07/20/18 07:00 Random Glucose 72 mg/dL (74-106) L 07/20/18 07:00 Calcium 9.0 mg/dL (8.5-10.1) 07/20/18 07:00 Total Bilirubin 0.4 mg/dL (0.2-1) 07/20/18 07:00 AST 23 U/L (15-37) 07/20/18 07:00 ALT 22 U/L (13-61) 07/20/18 07:00 Alkaline Phosphatase 56 U/L (45-117) 07/20/18 07:00 Total Protein 6.8 g/dl (6.4-8.2) 07/20/18 07:00 Albumin 3.6 g/dl (3.4-5.0) 07/20/18 07:00 Phenytoin 5.0 ug/ml (10.0-20.0) L 07/20/18 15:03 RPR Titer Nonreactive (NONREACTIVE) 07/20/18 07:00 HIV 1&2 Antibody Screen Negative 07/20/18 07:00 HIV P24 Antigen Negative 07/20/18 07:00 lab noted - Treatment Hospital Course: Detox Protocol Followed, Detoxed Safely, Responded well, Discharged Condition Good, Rehab Referral Accepted Patient has Accepted a Rehab Referral to: [facility] - Medication Discharge Medications: Ambulatory Orders Methadone [Dolophine -] 120 mg PO DAILY 12/27/17 Levothyroxine [Synthroid -] 125 mcg PO DAILY #20 tablet 01/23/18 Phenytoin Na Extended [Dilantin -] 300 mg PO BID 07/19/18 - Diagnosis (1) Alcohol dependence with uncomplicated withdrawal Current Visit: Yes Status: Acute (2) Hypothyroidism Current Visit: Yes Status: Chronic Qualifiers: Hypothyroidism type: acquired Qualified Code(s): E03.9 - Hypothyroidism, unspecified (3) Substance induced mood disorder Current Visit: Yes Status: Suspected (4) Methadone maintenance therapy patient Current Visit: Yes Status: Chronic (5) Nicotine dependence Current Visit: Yes Status: Acute Qualifiers: Nicotine product type: cigarettes Substance use status: in withdrawal Qualified Code(s): F17.213 - Nicotine dependence, cigarettes, with withdrawal (6) Hepatitis C Current Visit: Yes Status: Resolved Qualifiers: Viral hepatitis chronicity: unspecified Hepatic coma status: without hepatic coma Qualified Code(s): B19.20 - Unspecified viral hepatitis C without hepatic coma - AMA Did Patient Leave Against Medical Advice: No
== END 2018-07-23 10:15 | disposition home or self-care (01) | DRG 773 ==
LOC: YASAS 14:41 → Y3N 18:55
PROVIDERS: ADMIT Neuromusculoskeletal Medicine & OMM; ATTEND Neuromusculoskeletal Medicine & OMM
PROC: HZ2ZZZZ Detoxification Services for Substance Abuse Treatment (ICD-10-PCS; principal; 2018-07-19)
DX: F10.230 Alcohol dependence with withdrawal, uncomplicated (principal); F11.20 Opioid dependence, uncomplicated; F13.230 Sedative, hypnotic or anxiolytic dependence with withdrawal, uncomplicated; F14.20 Cocaine dependence, uncomplicated; F12.20 Cannabis dependence, uncomplicated; F17.213 Nicotine dependence, cigarettes, with withdrawal; F19.24 Other psychoactive substance dependence with psychoactive substance-induced mood disorder; F90.9 Attention-deficit hyperactivity disorder, unspecified type; F31.9 Bipolar disorder, unspecified; F43.10 Post-traumatic stress disorder, unspecified; E03.9 Hypothyroidism, unspecified; B19.20 Unspecified viral hepatitis C without hepatic coma; H10.33 Unspecified acute conjunctivitis, bilateral; H91.92 Unspecified hearing loss, left ear; G40.909 Epilepsy, unspecified, not intractable, without status epilepticus; Z91.013 Allergy to seafood; Z91.14 Patient's other noncompliance with medication regimen; Z59.0 Homelessness
CPT/HCPCS: 36415; 80053; 80185; 85027; 86593; 87389

== ENCOUNTER 2022-01-11 15:56 | Inpatient (IN) | payer OTHER ==
[2022-01-11] MEDS ORDERED: IBUPROFEN 400 MG TABLET (FP) PO PRN (23:34)
[2022-01-11] MEDS ORDERED: ONDANSETRON *ODT* 4 MG TABLET SL PRN (23:34)
[2022-01-11] MEDS ORDERED: NICOTINE 10 MG CARTRIDGE (INHALER) IH PRN (23:34)
[2022-01-11] MEDS ORDERED: DICYCLOMINE HCL 10 MG CAPSULE PO PRN (23:34)
[2022-01-11] MEDS ORDERED: LOPERAMIDE HCL 2 MG CAPSULE PO PRN (23:34)
[2022-01-11] MEDS ORDERED: ACETAMINOPHEN 325 MG TABLET (FP) PO PRN ×2 (23:34)
[2022-01-11] MEDS ORDERED: MAGNESIUM HYDROX 2400MG/30ML ORAL SUSPENSION 30 ML CUP PO PRN (23:34)
[2022-01-11] MEDS ORDERED: MAG HYDROX/AL HYDROX/SIMETH 30 ML UNIT-DOSE CUP PO PRN (23:34)
[2022-01-11] MEDS ORDERED: BISMUTH SUBSALICYLATE 524 MG/30 ML PO PRN (23:34)
[2022-01-11] MEDS ORDERED: BENZOCAINE/MENTHOL (CHLORASEPTIC ) LOZENGE MM PRN (23:34)
[2022-01-11] MEDS ORDERED: MAGNESIUM CITRATE 300 ML BOTTLE PO PRN (23:34)
[2022-01-11] MEDS ORDERED: IBUPROFEN 600 MG TABLET (FP) PO PRN (23:34)
[2022-01-12 01:21] VITALS: BMI 28.2
[2022-01-12] MEDS: diazePAM 5 MG TABLET PO SCH ×4 (07:18→22:06)
[2022-01-12] MEDS: NICOTINE 14 MG/24 HOURS TOPICAL PATCH TD SCH (10:46)
[2022-01-12] MEDS: METHOCARBAMOL 500 MG TABLET PO PRN (10:46)
[2022-01-12] MEDS: PRENATAL VITAMINS W/ FOLIC ACID TABLET (FP) PO SCH (10:46)
[2022-01-12] MEDS: PHENYTOIN NA EXTENDED 100 MG CAPSULE (FP) PO SCH ×2 (10:48→22:04)
[2022-01-12] MEDS ORDERED: methaDONE HCL 10 MG TABLET PO SCH ×2 (12:00)
[2022-01-12 12:34] LABS: HEMATOCRIT 42.9 % (35.4-49); HEMOGLOBIN 14.4 GM/dL (11.7-16.9); MCH 31.7 pg (25.7-33.7); MCHC 33.5 g/dl (32.0-35.9); MEAN CELL VOLUME 94.4 fl (80-96); MEAN PLT VOLUME 8.9 fl (7.5-11.1); PLATELET COUNT 235 10^3/uL (134-434); RBC 4.55 M/mm3 (4.00-5.60); RDW 13.7 % (11.9-15.9); WHITE BLOOD COUNT 9.2 K/mm3 (4.0-10.0)
[2022-01-12] MEDS ORDERED: methaDONE HCL 40 MG DISPERSABLE TABLET ONE (12:37)
[2022-01-12] MEDS ORDERED: methaDONE HCL 10 MG TABLET ONE (12:37)
[2022-01-12 12:59] LABS: ALBUMIN 4.3 g/dl (3.4-5.0); BILIRUBIN,TOTAL 0.7 mg/dL (0.2-1); BLOOD UREA NITROGEN 9.3 mg/dL (7-18); CALCIUM 9.4 mg/dL (8.5-10.1); TOT PROT 7.7 g/dl (6.4-8.2)
[2022-01-12] MEDS: diazePAM 5 MG TABLET PO PRN (15:28)
[2022-01-12] MEDS ORDERED: MELATONIN 5 MG TABLETS PO SCH (22:00)
[2022-01-12] MEDS: THIAMINE HCL 100 MG TABLET (FP) PO SCH (22:05)
[2022-01-13] MEDS ORDERED: methaDONE HCL 10 MG TABLET ONE (03:30)
[2022-01-13] MEDS ORDERED: methaDONE HCL 40 MG DISPERSABLE TABLET ONE (03:31)
[2022-01-13] MEDS: diazePAM 5 MG TABLET PO SCH ×3 (05:49→22:21)
[2022-01-13] MEDS: LEVOTHYROXINE NA 112 MCG TABLET (FP) PO SCH (06:21)
[2022-01-13] MEDS: METHOCARBAMOL 500 MG TABLET PO PRN (10:14)
[2022-01-13] MEDS: PRENATAL VITAMINS W/ FOLIC ACID TABLET (FP) PO SCH (10:14)
[2022-01-13] MEDS: PHENYTOIN NA EXTENDED 100 MG CAPSULE (FP) PO SCH ×2 (10:14→22:20)
[2022-01-13] MEDS: NICOTINE 14 MG/24 HOURS TOPICAL PATCH TD SCH (10:15)
[2022-01-13] MEDS: diazePAM 5 MG TABLET PO PRN (10:15)
[2022-01-13] MEDS: NICOTINE 21 MG/24 HOURS TOPICAL PATCH TD SCH (11:02)
[2022-01-13] MEDS: THIAMINE HCL 100 MG TABLET (FP) PO SCH (22:21)
[2022-01-13] MEDS: SUVOREXANT 10 MG TABLET PO PRN (22:24)
[2022-01-14] MEDS ORDERED: methaDONE HCL 10 MG TABLET ONE (04:45)
[2022-01-14] MEDS ORDERED: methaDONE HCL 40 MG DISPERSABLE TABLET ONE (04:45)
[2022-01-14] MEDS: diazePAM 5 MG TABLET PO SCH ×2 (05:17→17:39)
[2022-01-14] MEDS: LEVOTHYROXINE NA 112 MCG TABLET (FP) PO SCH (08:10)
[2022-01-14] MEDS ORDERED: metroNIDAZOLE 250 MG TABLET PO ONE (09:46)
[2022-01-14] MEDS ORDERED: AZITHROMYCIN 500 MG TABLET PO ONE (09:50)
[2022-01-14] MEDS: PRENATAL VITAMINS W/ FOLIC ACID TABLET (FP) PO SCH (10:07)
[2022-01-14] MEDS: PHENYTOIN NA EXTENDED 100 MG CAPSULE (FP) PO SCH ×2 (10:07→21:42)
[2022-01-14] MEDS: diazePAM 5 MG TABLET PO PRN ×2 (10:08→21:43)
[2022-01-14] MEDS: NICOTINE 21 MG/24 HOURS TOPICAL PATCH TD SCH (10:08)
[2022-01-14] MEDS: METHOCARBAMOL 500 MG TABLET PO PRN ×2 (10:08→21:42)
[2022-01-14] MEDS: DOXYCYCLINE HYCLATE 100 MG TABLET PO SCH ×2 (11:00→17:40)
[2022-01-14] MEDS ORDERED: COLLOIDAL OATMEAL 1 BAR EACH TP PRN (13:24)
[2022-01-14] MEDS: THIAMINE HCL 100 MG TABLET (FP) PO SCH (21:43)
[2022-01-14] MEDS: SUVOREXANT 10 MG TABLET PO PRN (21:45)
[2022-01-14 21:46] VITALS: RESP 18
[2022-01-15] MEDS ORDERED: methaDONE HCL 10 MG TABLET ONE (03:22)
[2022-01-15] MEDS ORDERED: methaDONE HCL 40 MG DISPERSABLE TABLET ONE (03:22)
[2022-01-15] MEDS ORDERED: diazePAM 5 MG TABLET PO ONE (06:00)
[2022-01-15] MEDS: LEVOTHYROXINE NA 112 MCG TABLET (FP) PO SCH (06:25)
[2022-01-15 07:42] VITALS: BP 154/107; PULSE 64; TEMP 98.2
== END 2022-01-15 07:47 | disposition home or self-care (01) | DRG 773 ==
LOC: YASAS 15:56 → Y6N 01-12 01:24
PROVIDERS: ADMIT Allergy & Immunology; ATTEND Surgery
PROC: HZ2ZZZZ Detoxification Services for Substance Abuse Treatment (ICD-10-PCS; principal; 2022-01-12)
DX: F10.230 Alcohol dependence with withdrawal, uncomplicated (principal); F11.20 Opioid dependence, uncomplicated; F13.230 Sedative, hypnotic or anxiolytic dependence with withdrawal, uncomplicated; F14.20 Cocaine dependence, uncomplicated; F12.20 Cannabis dependence, uncomplicated; F17.213 Nicotine dependence, cigarettes, with withdrawal; F43.10 Post-traumatic stress disorder, unspecified; F31.9 Bipolar disorder, unspecified; F90.9 Attention-deficit hyperactivity disorder, unspecified type; F19.24 Other psychoactive substance dependence with psychoactive substance-induced mood disorder; F19.282 Other psychoactive substance dependence with psychoactive substance-induced sleep disorder; F19.280 Other psychoactive substance dependence with psychoactive substance-induced anxiety disorder; N34.2 Other urethritis; E03.9 Hypothyroidism, unspecified; B19.20 Unspecified viral hepatitis C without hepatic coma; G40.909 Epilepsy, unspecified, not intractable, without status epilepticus; H91.92 Unspecified hearing loss, left ear; Z91.013 Allergy to seafood; Z91.018 Allergy to other foods; Z62.810 Personal history of physical and sexual abuse in childhood; Z56.0 Unemployment, unspecified; Z59.00 Homelessness unspecified
CPT/HCPCS: 36415; 80053; 80185; 85027; 86780; 87491; 87591; 87661; 93005; 93010; C9803-CS; Q0162; U0003; U0005